=== PATIENT | female | born 2000 | race Caucasian/White ===

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

== ENCOUNTER 2022-03-06 20:56 | Inpatient (IN) ==
[2022-03-06] MEDS ORDERED: NS 1,000 ML IV 1,000 ML IV SCH (22:00)
[2022-03-06 22:13] LABS: BASOPHILS # (AUTO) 0.1 X10^3/uL (0.0-0.1); BASOPHILS % (AUTO) 0.6 % (0.2-1.0); HEMATOCRIT 37.2 % (36.0-47.0); HEMOGLOBIN 12.8 g/dL (12.0-16.0); LYMPHOCYTES # (AUTO) 0.7 X10^3/uL (1.3-2.9); LYMPHOCYTES % (AUTO) 3.4 % (21.0-51.0); MEAN CORPUSCULAR HGB CONC 34.4 g/dL (33.0-35.0); MEAN CORPUSCULAR VOLUME 98.8 fL (80.0-100.0); MEAN PLATELET VOLUME 10.7 fL (7.4-11.0); MONOCYTES # (AUTO) 1.5 x10^3/uL (0.3-0.8); NEUTROPHILS # (AUTO) 18.7 x10^3/uL (2.2-4.8); RED BLOOD COUNT 3.77 X10^6/uL (3.5-5.4); RED CELL DISTRIBUTION WIDTH 12.4 % (11.6-16.5)
[2022-03-06 22:17] LABS: ABG BASE EXCESS 7.1 mmol/L (-2.0-2.0)
[2022-03-06 22:18] LABS: ABG ALLEN TEST POS; ABG HCO3 30.1 mmol/L (22-26)
--- NOTE | 2022-03-06 22:23 | RAD ---
HISTORYpneumonia, feverSTUDYCHEST, PA/LAT ADULTCOMPARISONNovember 2019.TECHNIQUEFrontal and lateral views of the chest were obtained.FINDINGSThere may be a ventriculoperitoneal catheter coursing along the right neck and medial aspect of the right chest. There are multiple EKG leads and wires seen overlying the patient. The heart is normal in size. There is a focal left lower lobe alveolar infiltrate. There is no effusion. There is no pneumothorax. The osseous structures are intact.IMPRESSIONFocal left lower lobe alveolar infiltrate.Electronically signed by: Yelitza Herzog (Mar 06, 2022 22:21:25)
[2022-03-06 22:25] LABS: ALANINE AMINOTRANSFERASE 34 Units/L (12-78); ALBUMIN 3.5 g/dL (3.4-5.0); ALKALINE PHOSPHATASE 67 Units/L (46-116); ASPARTATE AMINO TRANSFERASE 28 Units/L (15-37); BLOOD UREA NITROGEN 39 mg/dL (7-18); CALCIUM 9.2 mg/dL (8.5-10.1); CARBON DIOXIDE 29.3 mmol/L (21-32); CHLORIDE 110 mmol/L (98-107); COR NA(FOR HYPERGLY) 149 mmol/L (136-145); CREATININE 0.87 mg/dL (0.55-1.02); SODIUM 149 mmol/L (136-145); TOTAL PROTEIN 8.7 g/dL (6.4-8.2); eGFR NON BLACK RACES > 60 (>60)
[2022-03-06] MEDS ORDERED: ZOSYN VIAL 4.5 GRAMS IV ONE (23:49)
[2022-03-06] MEDS: LEVAQUIN PREMIX IV 750 MG 750 MG/150 ML BAG IV SCH (23:50)
[2022-03-06] MEDS ORDERED: NS 100 ML IV 100 ML ONE (23:50)
[2022-03-06] MEDS: SOLU-Medrol 40 MG VIAL IVP SCH (23:50)
[2022-03-07] MEDS: ZOSYN VIAL 4.5 GRAMS 4.5 G in NS 100 ML IV + SPIKE MINIBAG* 100 ML IV SCH ×2 (02:18→07:00)
[2022-03-07 05:41] VITALS: BMI 12.7
[2022-03-07 05:45] LABS: ALANINE AMINOTRANSFERASE 31 Units/L (12-78); ALBUMIN 3.3 g/dL (3.4-5.0); ALKALINE PHOSPHATASE 64 Units/L (46-116); ASPARTATE AMINO TRANSFERASE 31 Units/L (15-37); BLOOD UREA NITROGEN 35 mg/dL (7-18); CARBON DIOXIDE 29.2 mmol/L (21-32); CHLORIDE 110 mmol/L (98-107); COR CA(FOR HYPOALB) 9.6 mg/dL (8.5-10.1); COR NA(FOR HYPERGLY) 150 mmol/L (136-145); CREATININE 0.79 mg/dL (0.55-1.02); SODIUM 149 mmol/L (136-145); TOTAL PROTEIN 8.7 g/dL (6.4-8.2); eGFR NON BLACK RACES > 60 (>60)
[2022-03-07 06:08] LABS: HEMOGLOBIN 12.4 g/dL (12.0-16.0); MEAN PLATELET VOLUME 11.6 fL (7.4-11.0)
[2022-03-07 06:12] LABS: BASOPHILS % (AUTO) 0.2 % (0.2-1.0); LYMPHOCYTES # (AUTO) 0.4 X10^3/uL (1.3-2.9); MEAN CORPUSCULAR HEMOGLOBIN 33.4 pg (27.0-34.0); MEAN CORPUSCULAR HGB CONC 33.6 g/dL (33.0-35.0); MEAN CORPUSCULAR VOLUME 99.4 fL (80.0-100.0); MONOCYTES # (AUTO) 0.6 x10^3/uL (0.3-0.8); MONOCYTES % (AUTO) 2.9 % (0.0-13.0); NEUTROPHILS # (AUTO) 19.9 x10^3/uL (2.2-4.8); NEUTROPHILS % (AUTO) 94.9 % (42.0-75.0); RED BLOOD COUNT 3.72 X10^6/uL (3.5-5.4); RED CELL DISTRIBUTION WIDTH 12.8 % (11.6-16.5)
--- NOTE | 2022-03-07 06:42 | RAD ---
HISTORYPneumoniaSTUDYAP [id number]/16/2022FINDINGSHeart size remains normal. There is interval improvement in the left lower lobe infiltrate. The right lung remains clear. There is no evidence for additional consolidation, edema or pleural fluid.IMPRESSIONSignificant interval improvement in the left lower lobe. No new abnormality demonstrated.Electronically signed by: ANNE KING (Mar 07, 2022 06:41:03)
[2022-03-07] MEDS ORDERED: ZOSYN VIAL 4.5 GRAMS IV ONE (06:46)
[2022-03-07] MEDS ORDERED: NS 100 ML IV 100 ML ONE (06:47)
[2022-03-07] MEDS: SOLU-Medrol 40 MG VIAL IVP SCH ×3 (07:00→21:15)
[2022-03-07 07:24] LABS: PLATELET MORPHOLOGY COMMENT NORMAL (NORMAL)
[2022-03-07 07:26] LABS: BAND NEUTROPHILS % 2 % (0-10)
[2022-03-07] MEDS: PULMICORT NEB TX 0.5 MG NEB SCH ×2 (08:25→20:30)
[2022-03-07] MEDS: XOPENEX 1.25 MG/3 ML NEBULE NEB SCH ×3 (08:25→20:30)
[2022-03-07] MEDS: TAMIFLU PO SCH ×2 (09:47→21:15)
[2022-03-07] MEDS ORDERED: NS 1/2 1,000 ML IV 1,000 ML IV ONE (11:59)
[2022-03-07] MEDS: NS 1/2 1,000 ML IV 1,000 ML IV SCH (12:12)
--- NOTE | 2022-03-07 13:34 | DR.H&P ---
H&P - History & Physical for Day of: H&P Date: 03/06/22 - Chief Complaint Chief Complaint: FEVER, CCC - History of Present Illness History of Present Illness: PT IS 21WF, DIRECT ADMIT PER DR MCHUGH WITH FEVER, CCC. CXR REVEALED PNEUMONIA. PT HAS BEEN TREATED ON OP BASIS FOR ONE WEEK WITH PO ANTIBIOTICS AND RESP THERAPY WITHOUT IMPROVEMENT. PT WAS NOTED TO HAVE TEMP 1O3 AT HOME. PT HAS PMH OFPARKINSONS DISEASE AND MUSCULAR DYSTROPHY, ONSET FOUR YEARS AGO. SHE IS BED/WHEELCHAIR RIDDEN. FOOT DROP IS PRESENT. SHE HAS HAD A TONSILLECTOMY, G-TUBE PLACEMENT, AND BRAIN STIMULATOR INSERTION. PT ADMITTED FOR TREATMENT OF ACUTE ILLNESS. - Past Medical History Additional Medical History: PARKINSONS DISEASE, MUSCULAR DYSTROPHY - Past Surgical History Surgical History: Tonsillectomy Additional Surgical History: G-TUBE PLACEMENT, BRAIN STIMULATOR - Family History Family Medical History: Diabetes Mellitus, Coronary Artery Disease, Hypertension - Social History Does patient currently use any type of tobacco product: No Have you used tobacco products in the last 12 months: No Type of Tobacco Use: None Alcohol Use: None Drug Use: None Prescription drug monitoring program results: PDMP reviewed and no concerns identified - Medications Home Medications: No Known Drug Allergies Allergy (Verified 09/04/19 10:48) CONTINUE taking the following medications labmoyqggbmimvx-rqpvurvplnlilke-BM 2 mg-30 mg-10 mg/5 mL oral syrup 10 ml PO QID 03/07/22 [History] budesonide 0.25 mg/2 mL suspension for nebulization ml 03/07/22 [History] diazepam 5 mg tablet 1 tab PO TID PRN 03/07/22 [History] - Review of Systems Constitutional: Fever, Chills, Sweats ENT: No Symptoms Reported Respiratory: Cough, Sputum, Wheezing Cardiovascular: No Symptoms Reported Gastrointestinal: Other (INCREASED RESIDUAL WITH PEG TUBE ASPIRATION FOR ~4-5 DAYS) Genitourinary: Incontinence Musculoskeletal: No Symptoms Reported Skin: No Symptoms Reported Neurological: No Symptoms Reported - Physical Exam Vital Signs: Temperature 98.6 F Pulse Rate 92 Respiratory Rate 17 Blood Pressure [Right Arm] 98/55 Blood Pressure [Right Calf] 108/59 Blood Pressure [Right Arm] 115/54 Blood Pressure 100/67 O2 Sat by Pulse Oximetry 100 Oriented: Unable to test Eyes: Normal Ear: Normal Nose: Normal Throat: Dry Respiratory: Rhonchi Throughout, RLL Diminished, LLL Diminished Cardiovascular: Normal. negative: Edema : Normal Auscultation: Bowel Sounds: Normal Palpation: Normal Tenderness: Normal Skin: Decreased [place]urg[place] Musculoskeletal: Motor Deficit Mood Description: Calm Speech Pattern: Aphasic - Assessment/Plan (1) Pneumonia Status: Acute Plan: IV ATBX WITH LEVAQUIN AND ZOSYN. GENTLE IF HYDRATION, VERIFY AND RESUME HOME MEDICATION. CXR AND RESP PANEL OBTAINED ON ADMISSION. STRICT I&OS, RESP THERAPY, SUPPLEMENTAL O2. REPEAT AM CXR (2) Influenza A Status: Acute (3) GERD (gastroesophageal reflux disease) Status: Chronic (4) Parkinson disease Status: Chronic (5) Macular dystrophy Status: Chronic - Allergies Allergies/Adverse Reactions: Allergies Allergy/AdvReac Type Severity Reaction Status Date / Time No Known Drug Allergies Allergy Verified 09/04/19 10:48
--- NOTE | 2022-03-07 13:43 | PCM.PROG ---
Progress Note - Progress Note for Day of Date of Exam: 03/07/22 - Subjective Subjective: PT IS 21WF WITH PMH OF BED CONFINEMENT DUE TO PARKSINSONS, CURRENTLY FLU A+ WITH PNEUMONIA. PT IS ON LEVAQUIN, SOLU MEDROL, ZOSYN AND TAMIFLU. PT IS ON SUPPLEMENTAL O2 AND DUO NEBS SINCE ADMISSION. CXR SHOWS INTERVAL IMPROVEMENT, CONTINUED WITH PNEUMONIA. PT FAMILY AT BEDSIDE. REVIEWED DIAGNOSTIC TESTS AND LABS. DR MCHUGH ASSESSED PT IN ICU THIS AM. G TUBE FEEDINGS HAVE BEEN ADJUSTED DUE TO INCREASE RESIDUAL VOLUME. DR MCHUGH GAVE ORDERS FOR ENSURE SUPPLEMENTAL. PT WBC 21, HGB 12,4, NA 149, CLORIDE 110. HER IV FLUIDS WERE CHANGED TO 1/2NS AT 75 CC/HR. PLAN TO REPEAT AM LABS AND CXR. BP93/59 O2 SAT 96 ON 2L/NC, TEMP. 98.7 THIS AM - Past Medical Family Social History Past Med/Fam/Surg Hx: No changes since H&P Allergies: Allergies No Known Drug Allergies Allergy (Verified 09/04/19 10:48) - Review of Systems ROS: No change since H&P - Vital Signs and I&O's Vital Signs: Temperature 98.6 F Pulse Rate 85 Respiratory Rate 17 Blood Pressure [Right Arm] 98/55 Blood Pressure [Right Calf] 108/59 Blood Pressure [Right Arm] 115/54 Blood Pressure 92/53 O2 Sat by Pulse Oximetry 100 Intake and Output: Intake & Output 03/05/22 03/06/22 03/07/22 03/08/22 11:59 11:59 11:59 11:59 Intake Total 509 / 509 Balance 509 / 509 - Physical Exam Oriented: Unable to test, Other (EYES OPEN) Eyes: Normal Ear: Normal Nose: Normal Throat: Dry Respiratory: Diminished, Rhonchi Cardiovascular: Normal. negative: Edema : Normal Auscultation: Bowel Sounds: Normal Tenderness: Normal Skin: Decreased Turgur Musculoskeletal: Motor Deficit Mood Description: Calm Speech Pattern: Aphasic - Laboratory and Diagnostics Result Diagrams: 03/07/22 04:20 03/07/22 04:20 Labs: Laboratory WBC 21.0 X10^3/uL (3.6-10.0) H 03/07/22 04:20 RBC 3.72 X10^6/uL (3.5-5.4) 03/07/22 04:20 Hgb 12.4 g/dL (12.0-16.0) 03/07/22 04:20 Hct 37.0 % (36.0-47.0) 03/07/22 04:20 MCV 99.4 fL (80.0-100.0) 03/07/22 04:20 MCH 33.4 pg (27.0-34.0) 03/07/22 04:20 MCHC 33.6 g/dL (33.0-35.0) 03/07/22 04:20 RDW 12.8 % (11.6-16.5) 03/07/22 04:20 Plt Count 293 X10^3/uL (150.0-450.0) 03/07/22 04:20 Plt Count Comment Adequate (ADEQUATE) 03/07/22 04:20 MPV 11.6 fL (7.4-11.0) H 03/07/22 04:20 Neut % (Auto) 94.9 % (42.0-75.0) H 03/07/22 04:20 Lymph % (Auto) 2.0 % (21.0-51.0) L 03/07/22 04:20 [place] % (Auto) 2.9 % (0.0-13.0) 03/07/22 04:20 Eos % (Auto) 0.0 % (0.9-2.9) L 03/07/22 04:20 Baso % (Auto) 0.2 % (0.2-1.0) 03/07/22 04:20 Neut # (Auto) 19.9 x10^3/uL (2.2-4.8) H 03/07/22 04:20 Lymph # (Auto) 0.4 X10^3/uL (1.3-2.9) L 03/07/22 04:20 [place] # (Auto) 0.6 x10^3/uL (0.3-0.8) 03/07/22 04:20 Eos # (Auto) 0.0 x10^3/uL (0.0-0.2) 03/07/22 04:20 Baso # (Auto) 0.0 X10^3/uL (0.0-0.1) 03/07/22 04:20 Absolute Nucleated RBC 0.0 /100WBC 03/07/22 04:20 Total Counted 100 03/07/22 04:20 Neutrophils % (Manual) 92 % (39-76) H 03/07/22 04:20 Band Neutrophils % 2 % (0-10) 03/07/22 04:20 Lymphocytes % (Manual) 1 % (13-43) L 03/07/22 04:20 Monocytes % (Manual) 5 % (4-9) 03/07/22 04:20 Plt Morphology Comment Normal (NORMAL) 03/07/22 04:20 RBC Morphology Normal (NORMAL) 03/07/22 04:20 Sample Site Lrad 03/06/22 22:15 ABG pH 7.530 (7.35-7.45) H 03/06/22 22:15 ABG pCO2 36.0 mmHg (35.0-45.0) 03/06/22 22:15 ABG pO2 86.0 mmHg (80.0-100.0) 03/06/22 22:15 ABG HCO3 30.1 mmol/L (22-26) H* 03/06/22 22:15 ABG O2 Saturation 98.0 % (90-100) 03/06/22 22:15 ABG Base Excess 7.1 mmol/L (-2.0-2.0) H 03/06/22 22:15 Mohsen Test Pos 03/06/22 22:15 A-a Gradient 69.0 mmHg 03/06/22 22:15 FiO2 28.0 03/06/22 22:15 Blood Gas Comments rene well ms 03/06/22 22:15 Sodium 149 mmol/L (136-145) H 03/07/22 04:20 Corrected Sodium 150 mmol/L (136-145) H 03/07/22 04:20 Potassium 4.6 mmol/L (3.5-5.1) 03/07/22 04:20 Chloride 110 mmol/L (98-107) H 03/07/22 04:20 Carbon Dioxide 29.2 mmol/L (21-32) 03/07/22 04:20 BUN 35 mg/dL (7-18) H 03/07/22 04:20 Creatinine 0.79 mg/dL (0.55-1.02) 03/07/22 04:20 Est GFR (MDRD) Af Amer > 60 (>60) 03/07/22 04:20 Est GFR (MDRD) Non-Af > 60 (>60) 03/07/22 04:20 Glucose 125 mg/dL (65-99) H 03/07/22 04:20 Calcium 9.0 mg/dL (8.5-10.1) 03/07/22 04:20 Corrected Calcium 9.6 mg/dL (8.5-10.1) 03/07/22 04:20 Total Bilirubin 0.60 mg/dL (0.2-1.0) 03/07/22 04:20 AST 31 Units/L (15-37) 03/07/22 04:20 ALT 31 Units/L (12-78) 03/07/22 04:20 Alkaline Phosphatase 64 Units/L (46-116) 03/07/22 04:20 Total Protein 8.7 g/dL (6.4-8.2) H 03/07/22 04:20 Albumin 3.3 g/dL (3.4-5.0) L 03/07/22 04:20 Globulin 5.4 g/dL (2.5-4.5) H 03/07/22 04:20 Albumin/Globulin Ratio 0.6 Ratio (1.1-2.1) L 03/07/22 04:20 SARS-CoV-2 (PCR) Negative (NEGATIVE) 03/06/22 23:10 Influenza Type A (PCR) Positive (NEGATIVE) A 03/06/22 23:10 Influenza Type B (PCR) Negative (NEGATIVE) 03/06/22 23:10 RSV (PCR) Negative (NEGATIVE) 03/06/22 23:10 - Plan (1) Pneumonia Status: Acute Plan: IV ATBX WITH LEVAQUIN AND ZOSYN. GENTLE IF HYDRATION, VERIFY AND RESUME HOME MEDICATION. CXR AND RESP PANEL OBTAINED ON ADMISSION. STRICT I&OS, RESP THERAPY, SUPPLEMENTAL O2. REPEAT AM CXR (2) Hypernatremia Status: Acute Plan: 1/2 NS AT 75, REPEAT AM CMP, RESUME TUBE FEEDINGS, FLUSH WITH H2O PER DR NELSON ORDER (3) Influenza A Status: Acute (4) GERD (gastroesophageal reflux disease) Status: Chronic (5) Parkinson disease Status: Chronic (6) Macular dystrophy Status: Chronic
[2022-03-07] MEDS: ZOSYN VIAL 4.5 GRAMS 4.5 G in NS 100 ML IV 100 ML IV SCH ×2 (13:53→21:16)
[2022-03-07] MEDS: LEVAQUIN PREMIX IV 750 MG 750 MG/150 ML BAG IV SCH (21:16)
[2022-03-08] MEDS ORDERED: NS 1/2 1,000 ML IV 1,000 ML IV ONE ×2 (01:25→18:14)
[2022-03-08] MEDS: NS 1/2 1,000 ML IV 1,000 ML IV SCH ×3 (04:12→18:45)
[2022-03-08 04:30] LABS: BASOPHILS % (AUTO) 0.1 % (0.2-1.0); HEMATOCRIT 31.5 % (36.0-47.0); HEMOGLOBIN 10.6 g/dL (12.0-16.0); LYMPHOCYTES # (AUTO) 0.7 X10^3/uL (1.3-2.9); MEAN CORPUSCULAR HEMOGLOBIN 33.5 pg (27.0-34.0); MEAN CORPUSCULAR HGB CONC 33.8 g/dL (33.0-35.0); MEAN CORPUSCULAR VOLUME 99.2 fL (80.0-100.0); MEAN PLATELET VOLUME 11.1 fL (7.4-11.0); MONOCYTES # (AUTO) 0.6 x10^3/uL (0.3-0.8); MONOCYTES % (AUTO) 5.3 % (0.0-13.0); NEUTROPHILS # (AUTO) 10.3 x10^3/uL (2.2-4.8); NEUTROPHILS % (AUTO) 88.6 % (42.0-75.0); RED BLOOD COUNT 3.17 X10^6/uL (3.5-5.4); RED CELL DISTRIBUTION WIDTH 12.7 % (11.6-16.5)
[2022-03-08 04:38] LABS: ALANINE AMINOTRANSFERASE 20 Units/L (12-78); ALBUMIN 2.9 g/dL (3.4-5.0); ALKALINE PHOSPHATASE 57 Units/L (46-116); ASPARTATE AMINO TRANSFERASE 23 Units/L (15-37); BLOOD UREA NITROGEN 27 mg/dL (7-18); CALCIUM 8.9 mg/dL (8.5-10.1); CARBON DIOXIDE 29.1 mmol/L (21-32); CHLORIDE 110 mmol/L (98-107); COR CA(FOR HYPOALB) 9.8 mg/dL (8.5-10.1); CREATININE 0.63 mg/dL (0.55-1.02); SODIUM 146 mmol/L (136-145); TOTAL PROTEIN 7.7 g/dL (6.4-8.2); eGFR NON BLACK RACES > 60 (>60)
[2022-03-08 04:41] LABS: WHITE BLOOD COUNT 11.6 X10^3/uL (3.6-10.0)
[2022-03-08] MEDS: SOLU-Medrol 40 MG VIAL IVP SCH ×3 (05:29→21:12)
[2022-03-08] MEDS: ZOSYN VIAL 4.5 GRAMS 4.5 G in NS 100 ML IV 100 ML IV SCH ×3 (05:29→21:12)
[2022-03-08 06:17] LABS: BILIRUBIN,URINE NEGATIVE (NEGATIVE); BLOOD/HEMOGLOBIN,URINE 1+ (NEGATIVE); GLUCOSE, URINE NEGATIVE (NEGATIVE); KETONES,URINE 1+ (NEGATIVE); LEUKOCYTE ESTERASE ,URINE 1+ (NEGATIVE); NITRITES,URINE NEGATIVE (NEGATIVE); PROTEIN,URINE 2+ (NEGATIVE); UROBILINOGEN,URINE NORMAL (NORMAL)
[2022-03-08 06:28] LABS: APPEARANCE,URINE SLIGHTLY HAZY (CLEAR); BACTERIA,URINE TRACE /HPF (NEGATIVE); COLOR,URINE DARK YELLOW (YELLOW); RENAL EPITHELIAL CELLS,URINE RARE /HPF (NEGATIVE); SQUAMOUS EPITHELIAL CELL,UR FEW /HPF (NEGATIVE)
--- NOTE | 2022-03-08 07:26 | RAD ---
HISTORYPNEUMONIA; FEVER; SOBSTUDYCHEST, 1 [id number]/17/2022.TECHNIQUEAP view of the chestFINDINGSThe heart is normal in size. There is left base patchy opacity fat remains. No pleural effusion or pneumothorax. External wires limit evaluation. Patient is rotated.IMPRESSIONMild left base patchy opacity consistent with pneumonia.Electronically signed by: Jimy Perdomo (Mar 08, 2022 07:24:53)
[2022-03-08] MEDS: PULMICORT NEB TX 0.5 MG NEB SCH ×2 (08:00→21:02)
[2022-03-08] MEDS: XOPENEX 1.25 MG/3 ML NEBULE NEB SCH ×4 (08:00→21:02)
[2022-03-08] MEDS: TAMIFLU PO SCH ×2 (08:25→20:36)
[2022-03-08] MEDS ORDERED: NORCO 7.5/325 MG TAB PO PRN (10:06)
[2022-03-08] MEDS ORDERED: LIORESAL PO PRN (10:06)
[2022-03-08] MEDS ORDERED: SOMA TAB 350 MG PO PRN (10:06)
[2022-03-08] MEDS ORDERED: KLONOPIN TAB 1 MG PO PRN (10:06)
[2022-03-08] MEDS ORDERED: LOVENOX INJ 40 MG SYR SC SCH (11:00)
[2022-03-08] MEDS: NORETHINDRONE E ESTRADIOL IRON PO SCH (11:03)
[2022-03-08] MEDS: LEXAPRO PO SCH (11:03)
[2022-03-08] MEDS: PSEUDOEPHEDRINE PO SCH ×3 (12:10→21:14)
[2022-03-08] MEDS: DEXTROMETHORPHAN PO SCH ×3 (12:10→21:14)
[2022-03-08] MEDS: BROMPHENIRAMINE PO SCH ×3 (12:10→21:14)
[2022-03-08 19:01] LABS: BILIRUBIN,URINE NEGATIVE (NEGATIVE); BLOOD/HEMOGLOBIN,URINE NEGATIVE (NEGATIVE); GLUCOSE, URINE NEGATIVE (NEGATIVE); KETONES,URINE NEGATIVE (NEGATIVE); LEUKOCYTE ESTERASE ,URINE NEGATIVE (NEGATIVE); NITRITES,URINE NEGATIVE (NEGATIVE); PROTEIN,URINE 2+ (NEGATIVE); UROBILINOGEN,URINE NORMAL (NORMAL)
[2022-03-08 19:04] LABS: APPEARANCE,URINE CLEAR (CLEAR); COLOR,URINE YELLOW (YELLOW)
[2022-03-08 19:11] LABS: BACTERIA,URINE TRACE /HPF (NEGATIVE); RBC,URINE 0-2 /HPF (0-3); SQUAMOUS EPITHELIAL CELL,UR MODERATE /HPF (NEGATIVE)
[2022-03-08] MEDS: LEVAQUIN PREMIX IV 750 MG 750 MG/150 ML BAG IV SCH (21:12)
[2022-03-09 04:20] LABS: BASOPHILS % (AUTO) 0.1 % (0.2-1.0); HEMATOCRIT 31.6 % (36.0-47.0); LYMPHOCYTES # (AUTO) 0.5 X10^3/uL (1.3-2.9); MEAN CORPUSCULAR HEMOGLOBIN 34.3 pg (27.0-34.0); MEAN CORPUSCULAR HGB CONC 34.7 g/dL (33.0-35.0); MEAN CORPUSCULAR VOLUME 98.6 fL (80.0-100.0); MEAN PLATELET VOLUME 11.2 fL (7.4-11.0); MONOCYTES # (AUTO) 0.8 x10^3/uL (0.3-0.8); MONOCYTES % (AUTO) 7.7 % (0.0-13.0); NEUTROPHILS # (AUTO) 8.8 x10^3/uL (2.2-4.8); NEUTROPHILS % (AUTO) 87.2 % (42.0-75.0); RED CELL DISTRIBUTION WIDTH 12.2 % (11.6-16.5); WHITE BLOOD COUNT 10.1 X10^3/uL (3.6-10.0)
[2022-03-09 04:32] LABS: ALANINE AMINOTRANSFERASE 22 Units/L (12-78); ALBUMIN 2.7 g/dL (3.4-5.0); ALKALINE PHOSPHATASE 56 Units/L (46-116); ASPARTATE AMINO TRANSFERASE 18 Units/L (15-37); BLOOD UREA NITROGEN 21 mg/dL (7-18); CALCIUM 8.7 mg/dL (8.5-10.1); CARBON DIOXIDE 28.9 mmol/L (21-32); CHLORIDE 108 mmol/L (98-107); COR CA(FOR HYPOALB) 9.7 mg/dL (8.5-10.1); CREATININE 0.47 mg/dL (0.55-1.02); SODIUM 142 mmol/L (136-145); TOTAL PROTEIN 7.1 g/dL (6.4-8.2); eGFR NON BLACK RACES > 60 (>60)
[2022-03-09] MEDS: ZOSYN VIAL 4.5 GRAMS 4.5 G in NS 100 ML IV 100 ML IV SCH (05:01)
[2022-03-09] MEDS: SOLU-Medrol 40 MG VIAL IVP SCH (05:01)
[2022-03-09] MEDS: NS 1/2 1,000 ML IV 1,000 ML IV SCH (05:15)
--- NOTE | 2022-03-09 06:01 | RAD ---
HISTORYShortness of breathSTUDYChest AP [id number]/18/2022FINDINGSPati ent is rotated to the left. Heart size is normal. Christina are normal. Lung omalley are free with the exception of minimal subsegmental atelectasis in the left lower lobe. No acute alveolar infiltrates or areas of consolidation are identified. No pneumothorax or pleural effusion is identified. Bony thorax is unremarkable.IMPRESSIONNo acute infiltratesMinimal subsegmental atelectasis left lower lobeElectronically signed by: SOHAIL FOUNTAIN (Mar 09, 2022 06:00:24)
[2022-03-09] MEDS: XOPENEX 1.25 MG/3 ML NEBULE NEB SCH (08:52)
[2022-03-09] MEDS: PULMICORT NEB TX 0.5 MG NEB SCH (08:53)
[2022-03-09] MEDS: BROMPHENIRAMINE PO SCH (09:15)
[2022-03-09] MEDS: PSEUDOEPHEDRINE PO SCH (09:15)
[2022-03-09] MEDS: DEXTROMETHORPHAN PO SCH (09:15)
[2022-03-09] MEDS: NORETHINDRONE E ESTRADIOL IRON PO SCH (09:16)
[2022-03-09] MEDS: LEXAPRO PO SCH (09:16)
[2022-03-09] MEDS: TAMIFLU PO SCH (09:39)
[2022-03-09 10:07] VITALS: BP 96/54
--- NOTE | 2022-03-09 10:18 | PCM.PROG ---
Progress Note - Progress Note for Day of Date of Exam: 03/08/22 - Subjective Subjective: IS CURRENTLY INPATIENT STATUS FOR TREATMENT OF PNEUMONIA AND INFLUENZA. TODAY, SHE IS LYING IN BED WITH EYES CLOSED ON MORNING ROUNDS. SHE AWAKENS TO VERBAL STIMULI. SHE CONTINUES TO HAVE A NON-PRODUCTIVE COUGH AND CONGESTION. SHE DOES HAVE POOR COUGH REFLEX AND HAS DIFFICULTY CLEARING SECRETIONS. ON EXAMINATION TODAY, HEART IS REGULAR IN RATE AND RHYTHM. BILATERAL LUNGS ARE NOTED WITH RHONCHI THROUGHOUT. ABDOMEN IS ROUND, SOFT, AND NON-TENDER WITH NORMAL BOWEL SOUNDS NOTED IN ALL QUADRANTS. NO UPPER OR LOWER EXTREMITY EDEMA NOTED. HER VITALS THIS MORNING ARE: 97.8-91-19-100%-97/60. LABS WERE OBTAINED. ABNORMAL LAB VALUES INCLUDE THE FOLLOWING: WBC 11.6, RBC 3.17, HGB 10.6, HCT 31.5, SODIUM 146, POTASSIUM 4.5, CHLORIDE 110, BUN 27, CREATININE 0.63, GLUCOSE 108, CRP 89.00, TOTAL PROTEIN 7.7, ALBUMIN 2.9. BLOOD CULTURES ARE PENDING. A CHEST XRAY WAS OBTAINED THIS MORNING AND REVEALED: Mild left base patchy opacity consistent with pneumonia. SHE IS CURRENTLY RECEIVING 1/2NS AT 80 ML/HR, ZOSYN 4.5G IV TID, LEVAQUIN 750MG IV DAILY, SOLU-MEDROL 40MG IV Q8H, TAMIFLU 75MG PO BID, XOPENEX NEB TX QID, PULMICORT NEBS BID, AND HER HOME MEDICATIONS WERE RESUMED. OTHERWISE, WE PLAN TO FOLLOW-UP WITH AM LABS AND CHEST XRAY AND CONTINUE TO MONITOR. TIME SPENT ON CLINICAL ASSESSMENT, REVIWING LABS AND IMAGING, DECISION MAKING, AND DOCUMENTATION GREATER THAN 45 MINUTES. - Past Medical Family Social History Past Med/Fam/Surg Hx: No changes since H&P Allergies: Allergies No Known Drug Allergies Allergy (Verified 09/04/19 10:48) - Review of Systems ROS: No change since H&P - Vital Signs and I&O's Vital Signs: Temperature 99.0 F Pulse Rate 69 Respiratory Rate 15 Blood Pressure [Right Arm] 98/55 Blood Pressure [Right Calf] 108/59 Blood Pressure [Right Arm] 115/54 Blood Pressure 96/54 O2 Sat by Pulse Oximetry 100 Intake and Output: Intake & Output 03/06/22 03/07/22 03/08/22 03/09/22 11:59 11:59 11:59 11:59 Intake Total 509 / 509 2114 / 2114 2720 / 2720 Output Total 600 / 600 500 / 500 Balance 509 / 509 1514 / 1514 2220 / 2220 - Physical Exam Oriented: Other (EYES OPEN) Eyes: Normal Ear: Normal Nose: Normal Throat: Dry Respiratory: Diminished, Rhonchi Cardiovascular: Normal. negative: Edema : Normal Auscultation: Bowel Sounds: Normal Palpation: Normal Tenderness: Normal Skin: Decreased Turgur Musculoskeletal: Motor Deficit Mood Description: Calm Speech Pattern: Aphasic - Laboratory and Diagnostics Result Diagrams: 03/09/22 03:57 03/09/22 03:57 Labs: 03/06/22 22:05 Blood Blood Culture - Preliminary 03/06/22 21:58 Blood Blood Culture - Preliminary Laboratory WBC 10.1 X10^3/uL (3.6-10.0) H 03/09/22 03:57 RBC 3.20 X10^6/uL (3.5-5.4) L 03/09/22 03:57 Hgb 11.0 g/dL (12.0-16.0) L 03/09/22 03:57 Hct 31.6 % (36.0-47.0) L 03/09/22 03:57 MCV 98.6 fL (80.0-100.0) 03/09/22 03:57 MCH 34.3 pg (27.0-34.0) H 03/09/22 03:57 MCHC 34.7 g/dL (33.0-35.0) 03/09/22 03:57 RDW 12.2 % (11.6-16.5) 03/09/22 03:57 Plt Count 243 X10^3/uL (150.0-450.0) 03/09/22 03:57 Plt Count Comment Adequate (ADEQUATE) 03/07/22 04:20 MPV 11.2 fL (7.4-11.0) H 03/09/22 03:57 Neut % (Auto) 87.2 % (42.0-75.0) H 03/09/22 03:57 Lymph % (Auto) 5.0 % (21.0-51.0) L 03/09/22 03:57 [place] % (Auto) 7.7 % (0.0-13.0) 03/09/22 03:57 Eos % (Auto) 0.0 % (0.9-2.9) L 03/09/22 03:57 Baso % (Auto) 0.1 % (0.2-1.0) L 03/09/22 03:57 Neut # (Auto) 8.8 x10^3/uL (2.2-4.8) H 03/09/22 03:57 Lymph # (Auto) 0.5 X10^3/uL (1.3-2.9) L 03/09/22 03:57 [place] # (Auto) 0.8 x10^3/uL (0.3-0.8) 03/09/22 03:57 Eos # (Auto) 0.0 x10^3/uL (0.0-0.2) 03/09/22 03:57 Baso # (Auto) 0.0 X10^3/uL (0.0-0.1) 03/09/22 03:57 Absolute Nucleated RBC 0.0 /100WBC 03/09/22 03:57 Total Counted 100 03/07/22 04:20 Neutrophils % (Manual) 92 % (39-76) H 03/07/22 04:20 Band Neutrophils % 2 % (0-10) 03/07/22 04:20 Lymphocytes % (Manual) 1 % (13-43) L 03/07/22 04:20 Monocytes % (Manual) 5 % (4-9) 03/07/22 04:20 Plt Morphology Comment Normal (NORMAL) 03/07/22 04:20 RBC Morphology Normal (NORMAL) 03/07/22 04:20 Sample Site Lrad 03/06/22 22:15 ABG pH 7.530 (7.35-7.45) H 03/06/22 22:15 ABG pCO2 36.0 mmHg (35.0-45.0) 03/06/22 22:15 ABG pO2 86.0 mmHg (80.0-100.0) 03/06/22 22:15 ABG HCO3 30.1 mmol/L (22-26) H* 03/06/22 22:15 ABG O2 Saturation 98.0 % (90-100) 03/06/22 22:15 ABG Base Excess 7.1 mmol/L (-2.0-2.0) H 03/06/22 22:15 Mohsen Test Pos 03/06/22 22:15 A-a Gradient 69.0 mmHg 03/06/22 22:15 FiO2 28.0 03/06/22 22:15 Blood Gas Comments rene well ms 03/06/22 22:15 Sodium 142 mmol/L (136-145) 03/09/22 03:57 Corrected Sodium TNP 03/09/22 03:57 Potassium 4.4 mmol/L (3.5-5.1) 03/09/22 03:57 Chloride 108 mmol/L (98-107) H 03/09/22 03:57 Carbon Dioxide 28.9 mmol/L (21-32) 03/09/22 03:57 BUN 21 mg/dL (7-18) H 03/09/22 03:57 Creatinine 0.47 mg/dL (0.55-1.02) L 03/09/22 03:57 Est GFR (MDRD) Af Amer > 60 (>60) 03/09/22 03:57 Est GFR (MDRD) Non-Af > 60 (>60) 03/09/22 03:57 Glucose 104 mg/dL (65-99) H 03/09/22 03:57 Calcium 8.7 mg/dL (8.5-10.1) 03/09/22 03:57 Corrected Calcium 9.7 mg/dL (8.5-10.1) 03/09/22 03:57 Total Bilirubin 0.20 mg/dL (0.2-1.0) 03/09/22 03:57 AST 18 Units/L (15-37) 03/09/22 03:57 ALT 22 Units/L (12-78) 03/09/22 03:57 Alkaline Phosphatase 56 Units/L (46-116) 03/09/22 03:57 C-Reactive Protein 35.70 mg/L (0-3.0) H 03/09/22 03:57 Total Protein 7.1 g/dL (6.4-8.2) 03/09/22 03:57 Albumin 2.7 g/dL (3.4-5.0) L 03/09/22 03:57 Globulin 4.4 g/dL (2.5-4.5) 03/09/22 03:57 Albumin/Globulin Ratio 0.6 Ratio (1.1-2.1) L 03/09/22 03:57 Specimen Type Catherized urine 03/08/22 18:32 Urine Color Yellow (YELLOW) 03/08/22 18:32 Urine Appearance Clear (CLEAR) 03/08/22 18:32 Urine pH 5.0 (5.0 - 8.0) 03/08/22 18:32 Ur Specific [place] 1.025 (1.000-1.030) 03/08/22 18:32 Urine Protein 2+ (NEGATIVE) 03/08/22 18:32 Urine Glucose (UA) Negative (NEGATIVE) 03/08/22 18:32 Urine Ketones Negative (NEGATIVE) 03/08/22 18:32 Urine Blood Negative (NEGATIVE) 03/08/22 18:32 Urine Nitrite Negative (NEGATIVE) 03/08/22 18:32 Urine Bilirubin Negative (NEGATIVE) 03/08/22 18:32 Urine Urobilinogen Normal (NORMAL) 03/08/22 18:32 Ur Leukocyte Esterase Negative (NEGATIVE) 03/08/22 18:32 Urine RBC 0-2 /HPF (0-3) 03/08/22 18:32 Urine WBC 0-2 /HPF (0-5) 03/08/22 18:32 Ur Squamous Epith Cells Moderate /HPF (NEGATIVE) 03/08/22 18:32 Ur Renal Epithelial Cell Rare /HPF (NEGATIVE) 03/08/22 05:55 Amorphous Sediment Trace /HPF (NEGATIVE) 03/08/22 18:32 Urine Bacteria Trace /HPF (NEGATIVE) 03/08/22 18:32 Urine Mucus Moderate /HPF (NEGATIVE) 03/08/22 05:55 Ur Culture Indicated? No/not indicated 03/08/22 18:32 SARS-CoV-2 (PCR) Negative (NEGATIVE) 03/06/22 23:10 Influenza Type A (PCR) Positive (NEGATIVE) A 03/06/22 23:10 Influenza Type B (PCR) Negative (NEGATIVE) 03/06/22 23:10 RSV (PCR) Negative (NEGATIVE) 03/06/22 23:10 - Plan (1) Pneumonia Status: Acute Plan: IV ATBX WITH LEVAQUIN AND ZOSYN. GENTLE IF HYDRATION, VERIFY AND RESUME HOME MEDICATION. STRICT I&OS, RESP THERAPY, SUPPLEMENTAL O2. REPEAT AM CXR (2) Hypernatremia Status: Acute Plan: 1/2 NS AT 75, REPEAT AM CMP, RESUME TUBE FEEDINGS, FLUSH WITH H2O (3) Influenza A Status: Acute Plan: tamiflu 75mg po bid (4) GERD (gastroesophageal reflux disease) Status: Chronic Qualifiers: Esophagitis presence: esophagitis presence not specified Qualified Code(s): K21.9 - Gastro-esophageal reflux disease without esophagitis (5) Macular dystrophy Status: Chronic (6) Parkinson disease Status: Chronic
== END 2022-03-09 11:05 | disposition home or self-care (01) | DRG 194 ==
LOC: ICU 21:35
PROVIDERS: ADMIT Internal Medicine; ATTEND Internal Medicine
DX: R50.9 Fever, unspecified; Z20.822 Contact with and (suspected) exposure to COVID-19; K21.9 Gastro-esophageal reflux disease without esophagitis; G71.00 Muscular dystrophy, unspecified; R79.82 Elevated C-reactive protein (CRP); E87.0 Hyperosmolality and hypernatremia; J18.8 Other pneumonia, unspecified organism; Z93.1 Gastrostomy status; R06.02 Shortness of breath; J10.1 Influenza due to other identified influenza virus with other respiratory manifestations

== ENCOUNTER 2022-06-29 09:08 | Inpatient (IN) ==
[2022-06-29] MEDS ORDERED: NS 1,000 ML IV 1,000 ML ONE (10:02)
[2022-06-29 10:15] LABS: ABG ALLEN TEST POS; ABG BASE EXCESS 5.8 mmol/L (-2.0-2.0); ABG HCO3 30.6 mmol/L (22-26)
[2022-06-29] MEDS ORDERED: NS 1,000 ML IV 1,000 ML IV ONE ×3 (10:23→10:34)
[2022-06-29] MEDS: LEVAQUIN PREMIX IV 500 MG 500 MG/100 ML BAG IV SCH ×2 (10:42→12:02)
[2022-06-29] MEDS ORDERED: NS 1,000 ML IV 1,000 ML IV SCH (11:00)
[2022-06-29 11:01] LABS: BASOPHILS % (AUTO) 0.2 % (0.2-1.0); EOSINOPHILS # (AUTO) 0.2 x10^3/uL (0.0-0.2); EOSINOPHILS % (AUTO) 1.1 % (0.9-2.9); HEMATOCRIT 41.1 % (36.0-47.0); HEMOGLOBIN 14.5 g/dL (12.0-16.0); LYMPHOCYTES # (AUTO) 0.6 X10^3/uL (1.3-2.9); LYMPHOCYTES % (AUTO) 4.1 % (21.0-51.0); MEAN CORPUSCULAR HEMOGLOBIN 34.5 pg (27.0-34.0); MEAN CORPUSCULAR HGB CONC 35.2 g/dL (33.0-35.0); MEAN CORPUSCULAR VOLUME 97.9 fL (80.0-100.0); MEAN PLATELET VOLUME 11.4 fL (7.4-11.0); MONOCYTES # (AUTO) 0.6 x10^3/uL (0.3-0.8); MONOCYTES % (AUTO) 3.8 % (0.0-13.0); NEUTROPHILS # (AUTO) 13.9 x10^3/uL (2.2-4.8); NEUTROPHILS % (AUTO) 90.8 % (42.0-75.0); RED CELL DISTRIBUTION WIDTH 12.7 % (11.6-16.5); WHITE BLOOD COUNT 15.3 X10^3/uL (3.6-10.0)
[2022-06-29 11:06] LABS: ABG BASE EXCESS 2.3 mmol/L (-2.0-2.0); ABG HCO3 27.8 mmol/L (22-26)
[2022-06-29 11:07] LABS: ABG ALLEN TEST POS
[2022-06-29 11:11] LABS: ALBUMIN 3.3 g/dL (3.4-5.0); CALCIUM 9.3 mg/dL (8.5-10.1); CARBON DIOXIDE 28.2 mmol/L (21-32); COR CA(FOR HYPOALB) 9.9 mg/dL (8.5-10.1); CREATININE 3.61 mg/dL (0.55-1.02); TOTAL PROTEIN 7.2 g/dL (6.4-8.2)
[2022-06-29 11:18] LABS: LACTIC ACID 7.1 mmol/L (0.4-2.0)
[2022-06-29 11:41] LABS: BAND NEUTROPHILS % 15 % (0-10); METAMYELOCYTES % 7; MYELOCYTES % 1; PROMYELOCYTES % 1
[2022-06-29 11:42] LABS: PLATELET MORPHOLOGY COMMENT NORMAL (NORMAL)
--- NOTE | 2022-06-29 12:16 | RAD ---
HISTORYHYPOXIA, ASPIRATION PNEUMONIA, SEPSISSTUDYCHEST, 1 [id number]/2022FINDINGSThere is abnormal opacity in the lower 2/3 of the right lung. This could be pneumonia and was not present previously.Left lung clear. No pleural effusion or pneumothorax.Heart size is normal.Bones are unremarkable.EKG leads are noted. Additional lines are present in the right chest, unchanged from prior study.IMPRESSION1. New right lung pneumoniaElectronically signed by: Ricardo Chirinos (Jun 29, 2022 12:15:08)
[2022-06-29 12:42] LABS: BILIRUBIN,URINE NEGATIVE (NEGATIVE); BLOOD/HEMOGLOBIN,URINE 3+ (NEGATIVE); GLUCOSE, URINE NEGATIVE (NEGATIVE); KETONES,URINE NEGATIVE (NEGATIVE); LEUKOCYTE ESTERASE ,URINE 1+ (NEGATIVE); NITRITES,URINE NEGATIVE (NEGATIVE); PROTEIN,URINE 2+ (NEGATIVE); UROBILINOGEN,URINE NORMAL (NORMAL)
[2022-06-29 12:42] LABS: MAGNESIUM 2.6 mg/dL (2.0-2.9)
[2022-06-29 12:49] LABS: APPEARANCE,URINE HAZY (CLEAR); COLOR,URINE YELLOW (YELLOW); SQUAMOUS EPITHELIAL CELL,UR FEW /HPF (NEGATIVE)
[2022-06-29 12:50] LABS: BACTERIA,URINE TRACE /HPF (NEGATIVE); CALCIUM OXALATE CRYSTALS,UR FEW /HPF (NEGATIVE); YEAST,URINE MODERATE /HPF (NEGATIVE)
[2022-06-29] MEDS: DUONEB 0.5 MG/3 MG (3 mL) NEB SCH ×4 (12:51→21:00)
[2022-06-29] MEDS: SOLU-Medrol 40 MG VIAL IVP SCH ×3 (13:01→21:18)
[2022-06-29] MEDS: NS 1,000 ML IV 1,000 ML IV SCH ×4 (13:01→21:17)
[2022-06-29 13:53] LABS: INR 1.82 (0.8-1.3)
[2022-06-29] MEDS: ZOSYN VIAL 3.375 GRAMS 3.375 G in NS 100 ML IV 100 ML IV SCH ×2 (15:55→21:17)
[2022-06-29 18:11] LABS: BASOPHILS % (AUTO) 0.1 % (0.2-1.0); EOSINOPHILS % (AUTO) 0.4 % (0.9-2.9); HEMATOCRIT 35.4 % (36.0-47.0); HEMOGLOBIN 12.7 g/dL (12.0-16.0); LYMPHOCYTES # (AUTO) 0.2 X10^3/uL (1.3-2.9); LYMPHOCYTES % (AUTO) 3.7 % (21.0-51.0); MEAN CORPUSCULAR HEMOGLOBIN 34.7 pg (27.0-34.0); MEAN CORPUSCULAR VOLUME 96.5 fL (80.0-100.0); MONOCYTES # (AUTO) 0.2 x10^3/uL (0.3-0.8); MONOCYTES % (AUTO) 2.8 % (0.0-13.0); NEUTROPHILS # (AUTO) 5.9 x10^3/uL (2.2-4.8); RED BLOOD COUNT 3.67 X10^6/uL (3.5-5.4); RED CELL DISTRIBUTION WIDTH 12.9 % (11.6-16.5); WHITE BLOOD COUNT 6.4 X10^3/uL (3.6-10.0)
[2022-06-29 18:39] LABS: ALBUMIN 2.8 g/dL (3.4-5.0); CALCIUM 8.1 mg/dL (8.5-10.1); COR CA(FOR HYPOALB) 9.1 mg/dL (8.5-10.1); CREATININE 2.72 mg/dL (0.55-1.02)
[2022-06-29 18:54] LABS: BAND NEUTROPHILS % 18 % (0-10); METAMYELOCYTES % 8; MYELOCYTES % 10; PLATELET MORPHOLOGY COMMENT NORMAL (NORMAL); PROMYELOCYTES % 2
[2022-06-29] MEDS ORDERED: NS 250 ML IV 250 ML IV ONE (21:27)
--- NOTE | 2022-06-29 22:45 | RAD ---
HISTORYAbdomen distended Relevant Clinical InformationSTUDYKUBCOMPARISONNone br.br.br distended stomach. There is a percutaneous gastrostomy tube present. There is a stimulator device with electrodes projected over the mid abdomen. There is a moderate amount of fecal material within the colon. No pathological soft tissue mass or calcification can be observed. The bony structures are grossly intact.IMPRESSIONModerate gaseous distention of the stomach.Electronically signed by: Miko Patel (Jun 29, 2022 22:43:19)
[2022-06-30] MEDS ORDERED: NS 250 ML IV 250 ML IV PRN (01:00)
[2022-06-30 05:02] LABS: BASOPHILS % (AUTO) 0.2 % (0.2-1.0); EOSINOPHILS % (AUTO) 0.3 % (0.9-2.9); HEMATOCRIT 31.4 % (36.0-47.0); HEMOGLOBIN 11.1 g/dL (12.0-16.0); LYMPHOCYTES # (AUTO) 0.2 X10^3/uL (1.3-2.9); LYMPHOCYTES % (AUTO) 3.4 % (21.0-51.0); MEAN CORPUSCULAR HEMOGLOBIN 34.3 pg (27.0-34.0); MEAN CORPUSCULAR HGB CONC 35.5 g/dL (33.0-35.0); MEAN CORPUSCULAR VOLUME 96.7 fL (80.0-100.0); MEAN PLATELET VOLUME 11.4 fL (7.4-11.0); MONOCYTES # (AUTO) 0.2 x10^3/uL (0.3-0.8); MONOCYTES % (AUTO) 2.8 % (0.0-13.0); NEUTROPHILS # (AUTO) 6.6 x10^3/uL (2.2-4.8); NEUTROPHILS % (AUTO) 93.3 % (42.0-75.0); RED BLOOD COUNT 3.25 X10^6/uL (3.5-5.4); RED CELL DISTRIBUTION WIDTH 12.9 % (11.6-16.5); WHITE BLOOD COUNT 7.1 X10^3/uL (3.6-10.0)
[2022-06-30] MEDS: SOLU-Medrol 40 MG VIAL IVP SCH ×3 (05:06→21:13)
[2022-06-30] MEDS: NS 1,000 ML IV 1,000 ML IV SCH (05:07)
[2022-06-30 05:22] LABS: ALBUMIN 2.6 g/dL (3.4-5.0); CALCIUM 8.6 mg/dL (8.5-10.1); CARBON DIOXIDE 27.9 mmol/L (21-32); COR CA(FOR HYPOALB) 9.7 mg/dL (8.5-10.1); CREATININE 2.19 mg/dL (0.55-1.02); TOTAL PROTEIN 5.8 g/dL (6.4-8.2)
[2022-06-30 05:36] LABS: BAND NEUTROPHILS % 12 % (0-10); METAMYELOCYTES % 4; MYELOCYTES % 6; PLATELET MORPHOLOGY COMMENT NORMAL (NORMAL)
--- NOTE | 2022-06-30 06:35 | RAD ---
HISTORYASPIRATION PNEUMONIA; SOBSTUDYCHEST, 1 [id number]/08/2022.TECHNIQUEAP view of the chestFINDINGSCardiac and mediastinal contours are within normal limits. Mild improvement in right lung airspace opacity which is less dense than prior. No definite pleural effusion or pneumothorax. Patient is rotated.IMPRESSIONMild improvement in right lung airspace opacity.Electronically signed by: Jimy Perdomo (Jun 30, 2022 06:32:50)
[2022-06-30 07:05] LABS: ABG BASE EXCESS 4.7 mmol/L (-2.0-2.0); ABG HCO3 29.2 mmol/L (22-26)
[2022-06-30] MEDS: DUONEB 0.5 MG/3 MG (3 mL) NEB SCH ×4 (09:10→21:00)
[2022-06-30] MEDS ORDERED: DULCOLAX SUPPOSITORY 10 MG RECTAL ONE ×2 (09:52→21:22)
[2022-06-30] MEDS: LOVENOX INJ 30 MG SYR SC SCH (10:00)
[2022-06-30] MEDS: ZOSYN VIAL 3.375 GRAMS 3.375 G in NS 100 ML IV 100 ML IV SCH ×2 (10:50→21:13)
[2022-06-30] MEDS: D5W 1,000 ML IV 1,000 ML IV SCH ×2 (10:50→18:36)
--- NOTE | 2022-06-30 11:11 | DR.H&P ---
H&P - History & Physical for Day of: H&P Date: 06/29/22 - Chief Complaint Chief Complaint: HYPOXIA, RESPIRATORY DISTRESS, LETHARGIC - History of Present Illness History of Present Illness: IS A 22 YEAR OLD PATIENT OF OURS WHO WAS A DIRECT ADMISSION FOR TREATMENT OF ASPIRATION PNEUMONIA, HYPOXIA, AND SHOCK. PATIENTS MOTHER REPORTED THAT PATIENTS GTUBE FEEDINGS BEGAN TO BACK UP ON 06/27/22. ON TUESDAY, PATIENTS MOTHER BEGAN TO NOTICE THAT PATIENT APPEARED TO BE SHORT OF BREATH AND HAD INCREASED RESPIRATORY EFFORTS. SHE BEGAN MONITORING HER OXYGEN SATURATIONS, WHICH REMAINED ABOVE 90 THROUGHOUT TUESDAY. BEGINNING TUESDAY NIGHT AND INTO TUESDAY MORNING, PATIENTS OXYGEN SATURATIONS BEGAN TO DECLINE AND WAS NOTED TO BE IN THE 70s WHEN SHE NOTIFIED US. SHE WAS UNABLE TO OBTAIN A BLOOD PRESSURE AT HOME. DECISION WAS MADE TO ADMIT PATIENT TO THE HOSPITAL. PATIENT HAS A PMH OF PARKINSONS DISEASE AND MUSCULAR DYSTROPHY, ONSET ABOUT FOUR YEARS AGO. SHE IS BED/WHEELCHAIR RIDDEN. SHE HAS HAD A TONSILLECTOMY, G-TUBE PLACEMENT, AND BRAIN STIMULATOR. ON ARRIVAL TO THE HOSPITAL, VITALS WERE: 99.9-153-28-74%-81/56. SHE WAS PLACED ON THE NON- REBREATHER. SATURATIONS ONLY INCREASED TO 82%. LABS WERE OBTAINED. WBC 15.3, RBC 4.20, HGB 14.5, HCT 41.1, PLT COUNT 250, SODIUM 145, POTASSIUM 5.2, CHLORIDE 99, CARBON DIOXIDE 28.2, BUN 70, CREATININE 3.61, GLUCOSE 121, LACTIC ACID 7.1, CALCIUM 9.3, PHOSPHORUS 7.0, MAGNESIUM 2.6, AST 65, ALT 39, ALK PHOS 65, CREATINE KINASE 1651, TROPONIN 133.8, TOTAL PROTEIN 7.2, ALBUMIN 3.3, AMYLASE 136, LIPASE 112. A JOHNSON CATHETER WAS INSERTED AND URINALYSIS OBTAINED. URINE WBC 3-5, RBC 5-10, LEUKOCYTES 1+, BACTERIA TRACE, BLOOD 3+. COVID, INFLUENZA, AND RSV NEGATIVE. A RESPIRATORY VIRAL PANEL WAS COLLECTED AND SENT OUT. BLOOD CULTURES WERE SET UP. ABG OBTAINED AND REVEALED: PH 7.450, PC02 44, P02 35, HC03 30.6, 02 SATURATION 71, BASE EXCESS 5.8, A-A GRADIENT 623, FI02 100. A CHEST XRAY WAS OBTAINED AND REVEALED: There is abnormal opacity in the lower 2/3 of the right lung. This could be pneumonia and was not present previously. Left lung clear. No pleural effusion or pneumothorax. Heart size is normal. Bones are unremarkable. EKG leads are noted. Additional lines are present in the right chest, unchanged from prior study. EKG REVEALED SINUS TACHYCARDIA. A KUB WAS OBTAINED DUE TO ABDOMINAL DISTENTION. IT REVEALED: distended stomach. There is a percutaneous gastrostomy tube present. There is a stimulator device with electrodes projected over the mid abdomen. There is a moderate amount of fecal material within the colon. No pathological soft tissue mass or calcification can be observed. The bony structures are grossly intact. SHE WAS PLACED ON THE BIPAP. AN ABG WAS REPEATED AN HOUR AFTER USING THE BIPAP. IT REVEALED: PH 7.390, PC02 46, P02 43, HC03 27.8, 02 SAT 78, BASE EXCESS 2.3, A-A GRADIENT 613, FI02 100. SHE WAS GIVEN A TOTAL OF FOUR NORMAL SALINE 1 LITER BOLUSES AND THEN STARTED ON NORMAL SALINE AT 150 ML/HR. SHE WAS ALSO STARTED ON ZOSYN 3.375G IV BID, LEVAQUIN 500MG IV Q48H, LOVENOX 30MG SC DAILY, DUONEBS QID, SOLU-MEDROL 80MG IV Q8H. OTHERWISE, WE PLAN TO FOLLOW-UP WITH AM LABS AND CHEST XRAY AND CONTINUE TO MONITOR. TIME SPENT ON CLINICAL ASSESSMENT, REVIWING LABS AND IMAGING, DECISION MAKING, AND DOCUMENTATION GREATER THAN 75 MINUTES. - Past Medical History Additional Medical History: PARKINSONS DISEASE, MUSCULAR DYSTROPHY - Past Surgical History Surgical History: Tonsillectomy Additional Surgical History: G-TUBE PLACEMENT, BRAIN STIMULATOR - Family History Family Medical History: Diabetes Mellitus, Hypertension - Social History Does patient currently use any type of tobacco product: No Have you used tobacco products in the last 12 months: No Type of Tobacco Use: None Does any household member use tobacco: No Alcohol Use: None Drug Use: None - Medications Home Medications: No Known Drug Allergies Allergy (Verified 09/04/19 10:48) - Review of Systems Constitutional: Fever, Weakness Eyes: No Symptoms Reported ENT: No Symptoms Reported Respiratory: See HPI, Cough, Shortness of Breath Cardiovascular: No Symptoms Reported Gastrointestinal: See HPI, Other (ABDOMINAL DISTENTION ) Genitourinary: No Symptoms Reported Musculoskeletal: No Symptoms Reported Neurological: See HPI - Physical Exam Vital Signs: Temperature 97.7 F Pulse Rate 83 Respiratory Rate 20 Blood Pressure [Right Arm] 98/55 Blood Pressure [Right Calf] 108/59 Blood Pressure [Right Arm] 115/54 Blood Pressure 101/74 O2 Sat by Pulse Oximetry 100 Oriented: Unable to test Eyes: Normal Ear: Normal Nose: Normal Throat: Normal Respiratory: Rhonchi Throughout Cardiovascular: Tachycardia : Normal Auscultation: Bowel Sounds: Normal Palpation: Normal Tenderness: Other (DISTENTION, PEG TUBE PRESENT ) Skin: Decreased Turgur Psychiatric: Other (LETHARGIC ) Mood Description: Flat Affect: Flat Speech Pattern: Aphasic - Assessment/Plan (1) Aspiration pneumonia Qualifiers: Aspiration pneumonia type: unspecified Laterality: right Lung location: lower lobe of lung Qualified Code(s): J69.0 - Pneumonitis due to inhalation of food and vomit Status: Acute Plan: ADMIT, BIPAP, NORMAL SALINE AT 150 ML/HR, ZOSYN 3.375G IV BID, LEVAQUIN 500MG IV Q48H, LOVENOX 30MG SC DAILY, DUONEBS QID, SOLU-MEDROL 80MG IV Q8H. (2) Septic shock Status: Acute (3) Hypoxia Status: Acute (4) Respiratory distress Status: Acute (5) Hypernatremia Status: Acute (6) Parkinson disease Status: Chronic (7) Macular dystrophy Status: Chronic - Allergies Allergies/Adverse Reactions: Allergies Allergy/AdvReac Type Severity Reaction Status Date / Time No Known Drug Allergies Allergy Verified 09/04/19 10:48
[2022-06-30 18:17] LABS: GASTRIC OCCULT BLOOD POSITIVE (NEGATIVE); PH,GASTRIC FLUID 3
[2022-06-30] MEDS ORDERED: DULCOLAX SUPPOSITORY 10 MG ONE (21:43)
[2022-07-01] MEDS: D5W 1,000 ML IV 1,000 ML IV SCH ×2 (00:36→08:24)
[2022-07-01 04:57] LABS: BASOPHILS % (AUTO) 0.1 % (0.2-1.0); HEMATOCRIT 24.7 % (36.0-47.0); LYMPHOCYTES # (AUTO) 0.2 X10^3/uL (1.3-2.9); LYMPHOCYTES % (AUTO) 4.2 % (21.0-51.0); MEAN CORPUSCULAR HEMOGLOBIN 34.2 pg (27.0-34.0); MEAN CORPUSCULAR HGB CONC 35.5 g/dL (33.0-35.0); MEAN CORPUSCULAR VOLUME 96.5 fL (80.0-100.0); MEAN PLATELET VOLUME 11.1 fL (7.4-11.0); MONOCYTES # (AUTO) 0.3 x10^3/uL (0.3-0.8); MONOCYTES % (AUTO) 4.6 % (0.0-13.0); NEUTROPHILS # (AUTO) 5.1 x10^3/uL (2.2-4.8); NEUTROPHILS % (AUTO) 91.1 % (42.0-75.0); RED BLOOD COUNT 2.56 X10^6/uL (3.5-5.4); RED CELL DISTRIBUTION WIDTH 12.7 % (11.6-16.5); WHITE BLOOD COUNT 5.6 X10^3/uL (3.6-10.0)
[2022-07-01 05:11] LABS: ALANINE AMINOTRANSFERASE 61 Units/L (12-78); ALBUMIN 2.4 g/dL (3.4-5.0); ALKALINE PHOSPHATASE 40 Units/L (46-116); ASPARTATE AMINO TRANSFERASE 109 Units/L (15-37); BLOOD UREA NITROGEN 33 mg/dL (7-18); CALCIUM 8.4 mg/dL (8.5-10.1); CARBON DIOXIDE 31.9 mmol/L (21-32); CHLORIDE 105 mmol/L (98-107); COR CA(FOR HYPOALB) 9.7 mg/dL (8.5-10.1); COR NA(FOR HYPERGLY) 144 mmol/L (136-145); CREATININE 0.76 mg/dL (0.55-1.02); SODIUM 143 mmol/L (136-145); TOTAL PROTEIN 5.4 g/dL (6.4-8.2); eGFR NON BLACK RACES > 60 (>60)
[2022-07-01] MEDS: SOLU-Medrol 40 MG VIAL IVP SCH ×3 (05:20→21:05)
[2022-07-01 05:38] LABS: BAND NEUTROPHILS % 12 % (0-10); HEMOGLOBIN 8.7 g/dL (12.0-16.0)
[2022-07-01 05:39] LABS: HYPOCHROMASIA SLIGHT; METAMYELOCYTES % 1; MYELOCYTES % 2; PLATELET MORPHOLOGY COMMENT NORMAL (NORMAL)
--- NOTE | 2022-07-01 07:01 | RAD ---
HISTORYASPIRATION PNEUMONIA; SOBSTUDYCHEST, 1 [id number]/09/2022.TECHNIQUEAP view of the chestFINDINGSCardiac and mediastinal contours are within normal limits. Similar appearance of right lung airspace opacity. No definite pleural effusion or pneumothorax. External wires noted. Patient is rotated.IMPRESSIONSimilar appearance of right lung airspace opacity that may be due to aspiration pneumonia.Electronically signed by: Jimy Perdomo (Jul 01, 2022 07:00:21)
[2022-07-01] MEDS: LOVENOX INJ 30 MG SYR SC SCH (08:30)
[2022-07-01] MEDS ORDERED: LEVAQUIN PREMIX IV 500 MG 500 MG/100 ML BAG IV SCH (09:00)
[2022-07-01] MEDS: ZOSYN VIAL 3.375 GRAMS 3.375 G in NS 100 ML IV 100 ML IV SCH ×3 (09:30→21:05)
[2022-07-01] MEDS ORDERED: NovoLIN R (or HumuLIN R) SUBCUT PRN (10:11)
[2022-07-01] MEDS: DUONEB 0.5 MG/3 MG (3 mL) NEB SCH ×4 (10:20→21:51)
[2022-07-01] MEDS: [UNRECOGNIZED DRUG - REMARK] IV SCH ×8 (11:01→19:34)
--- NOTE | 2022-07-01 17:56 | PCM.PROG ---
Progress Note - Progress Note for Day of Date of Exam: 06/30/22 - Subjective Subjective: IS CURRENTLY INPATIENT STATUS FOR TREATMENT OF ASPIRATION PNEUMONIA, SEPTIC SHOCK, DEHYDRATION, HYPOXIA, AND HYPERNATREMIA. SHE HAS A HX OF PARKINSONS, MUSCULAR DYSTROPHY, AND IS BED/WHEELCHAIR RIDDEN. HER PARENTS ARE AT BEDSIDE. THEY REPORT THAT SHE HASNT HAD A BOWEL MOVEMENT IN SEVERAL DAYS AND BELIEVE THAT SHE HAS BEEN STRAINING, BUT HAS BEEN UNABLE TO PRODUCE A BM. TODAY, SHE IS LYING IN BED WITH EYES CLOSED ON MORNING ROUNDS. SHE DOES NOT AWAKEN TO VERBAL STIMULI, BUT MOANS WHILE WE ARE EXAMINING HER. SHE IS CURRENTLY UTILIZING OXYGEN VIA NASAL CANNULA AT 3 LPM. SHE USED THE BIPAP THROUGHOUT THE NIGHT. UPON EXAMINATION TODAY, HEART IS REGULAR IN RATE AND RHYTHM. BILATERAL LUNGS ARE NOTED WITH RHONCHI THROUGHOUT. ABDOMEN IS ROUND, SOFT, AND NON-TENDER WITH NORMAL BOWEL SOUNDS NOTED IN ALL QUADRANTS. G-TUBE IS NOTED. NO UPPER OR LOWER EXTREMITY EDEMA NOTED. HER VITALS THIS MORNING ARE: 97.4-79-15-99%-102/72. LABS WERE OBTAINED. ABNORMAL LAB VALUES INCLUDE THE FOLLOWING: WBC 7.1, RBC 3.25, HGB 11.1, HCT 31.4, SODIUM 150, POTASSIUM 3.9, CHLORIDE 109, BUN 65, CREATININE 2.19, GLUCOSE 115, CALCIUM 8.6, AST 91, ALT 42, ALK PHOS 48, TROPONIN 70.8, TOTAL PROTEIN 5.8, ALBUMIN 2.6. BLOOD CULTURES ARE PENDING. A CHEST XRAY WAS OBTAINED THIS MORNING AND REVEALED: Mild improvement in right lung airspace opacity. A KUB WAS OBTAINED YESTERDAY AND REVEALED A MODERATE AMOUNT OF FECAL MATERIAL IN THE COLON. SHE IS CURRENTLY RECEIVING NORMAL SALINE AT 150 ML/HR, ZOSYN 3.375G IV BID, LEVAQUIN 500MG IV Q48H, LOVENOX 30MG SC DAILY, DUONEBS QID, SOLU-MEDROL 80MG IV Q8H. WE WILL DISCONTINUE THE NORMAL SALINE AND ADD D5W AT 125 ML/HR. WE WILL ADMINISTER A DULCOLAX SUPPOSITORY X 1 DOSE. OTHERWISE, WE PLAN TO FOLLOW-UP WITH AM LABS AND CHEST XRAY AND CONTINUE TO MONITOR. TIME SPENT ON CLINICAL ASSESSMENT, REVIWING LABS AND IMAGING, DECISION MAKING, AND DOCUMENTATION GREATER THAN 45 MINUTES. - Past Medical Family Social History Past Med/Fam/Surg Hx: No changes since H&P Allergies: Allergies No Known Drug Allergies Allergy (Verified 09/04/19 10:48) - Review of Systems ROS: No change since H&P - Vital Signs and I&O's Vital Signs: Temperature 98.6 F Pulse Rate 80 Respiratory Rate 20 Blood Pressure [Right Arm] 98/55 Blood Pressure [Right Calf] 108/59 Blood Pressure [Right Arm] 115/54 Blood Pressure 103/58 O2 Sat by Pulse Oximetry 100 Intake and Output: Intake & Output 06/29/22 06/30/22 07/01/22 07/02/22 11:59 11:59 11:59 11:59 Intake Total 2374 / 2374 3346 / 3346 1483 / 1483 Output Total 275 / 275 4865 / 4865 1085 / 1085 Balance 2099 / 2098 -1519 / -1519 398 / 398 - Physical Exam Oriented: Unable to test Eyes: Normal Ear: Normal Nose: Normal Throat: Normal Respiratory: Generalized, Rhonchi Cardiovascular: Normal : Normal Auscultation: Bowel Sounds: Normal Palpation: Normal Tenderness: Other (DISTENTION, PEG TUBE PRESENT ) Skin: Decreased Turgur Psychiatric: Other (LETHARGIC ) Mood Description: Flat Affect: Flat Speech Pattern: Aphasic - Laboratory and Diagnostics Result Diagrams: 07/01/22 04:35 07/01/22 04:35 Labs: 06/29/22 13:26 Blood Blood Culture - Preliminary 06/29/22 13:17 Blood Blood Culture - Preliminary Laboratory WBC 5.6 X10^3/uL (3.6-10.0) 07/01/22 04:35 RBC 2.56 X10^6/uL (3.5-5.4) L 07/01/22 04:35 Hgb 8.7 g/dL (12.0-16.0) L D 07/01/22 04:35 Hct 24.7 % (36.0-47.0) L 07/01/22 04:35 MCV 96.5 fL (80.0-100.0) 07/01/22 04:35 MCH 34.2 pg (27.0-34.0) H 07/01/22 04:35 MCHC 35.5 g/dL (33.0-35.0) H 07/01/22 04:35 RDW 12.7 % (11.6-16.5) 07/01/22 04:35 Plt Count 126 X10^3/uL (150.0-450.0) L 07/01/22 04:35 Plt Count Comment Decreased (ADEQUATE) A 07/01/22 04:35 MPV 11.1 fL (7.4-11.0) H 07/01/22 04:35 Neut % (Auto) 91.1 % (42.0-75.0) H 07/01/22 04:35 Lymph % (Auto) 4.2 % (21.0-51.0) L 07/01/22 04:35 [place] % (Auto) 4.6 % (0.0-13.0) 07/01/22 04:35 Eos % (Auto) 0.0 % (0.9-2.9) L 07/01/22 04:35 Baso % (Auto) 0.1 % (0.2-1.0) L 07/01/22 04:35 Neut # (Auto) 5.1 x10^3/uL (2.2-4.8) H 07/01/22 04:35 Lymph # (Auto) 0.2 X10^3/uL (1.3-2.9) L 07/01/22 04:35 [place] # (Auto) 0.3 x10^3/uL (0.3-0.8) 07/01/22 04:35 Eos # (Auto) 0.0 x10^3/uL (0.0-0.2) 07/01/22 04:35 Baso # (Auto) 0.0 X10^3/uL (0.0-0.1) 07/01/22 04:35 Absolute Nucleated RBC 0.0 /100WBC 07/01/22 04:35 Total Counted 100 07/01/22 04:35 Neutrophils % (Manual) 75 % (39-76) 07/01/22 04:35 Band Neutrophils % 12 % (0-10) H 07/01/22 04:35 Lymphocytes % (Manual) 9 % (13-43) L 07/01/22 04:35 Monocytes % (Manual) 1 % (4-9) L 07/01/22 04:35 Eosinophils % (Manual) 1 % (0-6) 06/29/22 10:41 Metamyelocytes % 1 07/01/22 04:35 Myelocytes % 2 07/01/22 04:35 Promyelocytes % 2 06/29/22 17:51 Plt Morphology Comment Normal (NORMAL) 07/01/22 04:35 RBC Morphology Abnormal (NORMAL) A 07/01/22 04:35 Hypochromasia Slight A 07/01/22 04:35 PT 20.4 SECONDS (11.8-14.3) 06/29/22 13:17 INR Target Range - 06/29/22 13:17 INR 1.82 (0.8-1.3) H 06/29/22 13:17 APTT 36.5 SECONDS (22.9-36.5) 06/29/22 13:17 PTT Comment - 06/29/22 13:17 Sample Site Lbra 06/30/22 07:00 ABG pH 7.450 (7.35-7.45) 06/30/22 07:00 ABG pCO2 42.0 mmHg (35.0-45.0) 06/30/22 07:00 ABG pO2 409.0 mmHg (80.0-100.0) H 06/30/22 07:00 ABG HCO3 29.2 mmol/L (22-26) H 06/30/22 07:00 ABG O2 Saturation 100.0 % (90-100) 06/30/22 07:00 ABG Base Excess 4.7 mmol/L (-2.0-2.0) H 06/30/22 07:00 Mohsen Test N/a 06/30/22 07:00 A-a Gradient 180.0 mmHg 06/30/22 07:00 FiO2 90.0 06/30/22 07:00 Blood Gas Comments Srikanth well ms/sd 06/30/22 07:00 Sodium 143 mmol/L (136-145) 07/01/22 04:35 Corrected Sodium 144 mmol/L (136-145) 07/01/22 04:35 Potassium 3.5 mmol/L (3.5-5.1) 07/01/22 04:35 Chloride 105 mmol/L (98-107) 07/01/22 04:35 Carbon Dioxide 31.9 mmol/L (21-32) 07/01/22 04:35 BUN 33 mg/dL (7-18) H 07/01/22 04:35 Creatinine 0.76 mg/dL (0.55-1.02) 07/01/22 04:35 Est GFR (MDRD) Af Amer > 60 (>60) 07/01/22 04:35 Est GFR (MDRD) Non-Af > 60 (>60) 07/01/22 04:35 Glucose 144 mg/dL (65-99) H 07/01/22 04:35 POC Glucose (mg/dL) 113 mg/dL (65-99) H 07/01/22 14:15 Lactic Acid 1.9 mmol/L (0.4-2.0) 06/29/22 23:45 Calcium 8.4 mg/dL (8.5-10.1) L 07/01/22 04:35 Corrected Calcium 9.7 mg/dL (8.5-10.1) 07/01/22 04:35 Phosphorus 7.0 mg/dL (2.6-4.7) H 06/29/22 10:56 Magnesium 2.6 mg/dL (2.0-2.9) 06/29/22 10:56 Total Bilirubin 0.30 mg/dL (0.2-1.0) 07/01/22 04:35 AST 109 Units/L (15-37) H 07/01/22 04:35 ALT 61 Units/L (12-78) 07/01/22 04:35 Alkaline Phosphatase 40 Units/L (46-116) L 07/01/22 04:35 Creatine Kinase 2743 Units/L (26-192) H 06/29/22 23:45 Troponin I High Sens 70.8 ng/L (4.0-60.0) H* 06/30/22 04:27 Total Protein 5.4 g/dL (6.4-8.2) L 07/01/22 04:35 Albumin 2.4 g/dL (3.4-5.0) L 07/01/22 04:35 Globulin 3.0 g/dL (2.5-4.5) 07/01/22 04:35 Albumin/Globulin Ratio 0.8 Ratio (1.1-2.1) L 07/01/22 04:35 Amylase 136 Units/L (25-115) H 06/29/22 10:56 Lipase 112 Units/L (73-393) 06/29/22 10:56 Specimen Type Catherized urine 06/29/22 12:20 Urine Color Yellow (YELLOW) 06/29/22 12:20 Urine Appearance Hazy (CLEAR) 06/29/22 12:20 Urine pH 7.0 (5.0 - 8.0) 06/29/22 12:20 Ur Specific [place] 1.015 (1.000-1.030) 06/29/22 12:20 Urine Protein 2+ (NEGATIVE) 06/29/22 12:20 Urine Glucose (UA) Negative (NEGATIVE) 06/29/22 12:20 Urine Ketones Negative (NEGATIVE) 06/29/22 12:20 Urine Blood 3+ (NEGATIVE) 06/29/22 12:20 Urine Nitrite Negative (NEGATIVE) 06/29/22 12:20 Urine Bilirubin Negative (NEGATIVE) 06/29/22 12:20 Urine Urobilinogen Normal (NORMAL) 06/29/22 12:20 Ur Leukocyte Esterase 1+ (NEGATIVE) 06/29/22 12:20 Urine RBC 5-10 /HPF (0-3) A 06/29/22 12:20 Urine WBC 3-5 /HPF (0-5) 06/29/22 12:20 Ur Squamous Epith Cells Few /HPF (NEGATIVE) 06/29/22 12:20 Calcium Oxalate Crystal Few /HPF (NEGATIVE) 06/29/22 12:20 Urine Bacteria Trace /HPF (NEGATIVE) 06/29/22 12:20 Urine Mucus Moderate /HPF (NEGATIVE) 06/29/22 12:20 Urine Yeast Moderate /HPF (NEGATIVE) 06/29/22 12:20 Ur Culture Indicated? No/not indicated 06/29/22 12:20 Gastric Fluid pH 3 06/30/22 18:06 Gastric Occult Blood Positive (NEGATIVE) A 06/30/22 18:06 SARS-CoV-2 (PCR) Negative (NEGATIVE) 06/29/22 10:30 Influenza Type A (PCR) Negative (NEGATIVE) 06/29/22 10:30 Influenza Type B (PCR) Negative (NEGATIVE) 06/29/22 10:30 RSV (PCR) Negative (NEGATIVE) 06/29/22 10:30 Resp Viral Panel (PCR) See scanned report 06/29/22 11:03 - Plan (1) Aspiration pneumonia Status: Acute Qualifiers: Aspiration pneumonia type: unspecified Laterality: right Lung location: lower lobe of lung Qualified Code(s): J69.0 - Pneumonitis due to inhalation of food and vomit Plan: SUPPLEMENTAL OXYGEN, D5W AT 125 ML/HR, ZOSYN 3.375G IV BID, LEVAQUIN 500MG IV Q48H, LOVENOX 30MG SC DAILY, DUONEBS QID, SOLU-MEDROL 80MG IV Q8H. (2) Septic shock Status: Acute (3) Hypoxia Status: Acute (4) Respiratory distress Status: Acute (5) Hypernatremia Status: Acute (6) Parkinson disease Status: Chronic (7) Macular dystrophy Status: Chronic
--- NOTE | 2022-07-01 18:09 | PCM.PROG ---
Progress Note - Progress Note for Day of Date of Exam: 07/01/22 - Subjective Subjective: IS CURRENTLY INPATIENT STATUS FOR TREATMENT OF ASPIRATION PNEUMONIA, SEPTIC SHOCK, DEHYDRATION, HYPOXIA, AND HYPERNATREMIA. SHE HAS A HX OF PARKINSONS, MUSCULAR DYSTROPHY, AND IS BED/WHEELCHAIR RIDDEN. HER PARENTS ARE AT BEDSIDE. TODAY, SHE IS LYING IN BED WITH EYES CLOSED ON MORNING ROUNDS. SHE DOES NOT AWAKEN TO VERBAL STIMULI, BUT MOANS WHILE WE ARE EXAMINING HER. SHE IS CURRENTLY UTILIZING OXYGEN VIA NASAL CANNULA AT 3 LPM. SHE USED THE BIPAP THROUGHOUT THE NIGHT. UPON EXAMINATION TODAY, HEART IS REGULAR IN RATE AND RHYTHM. BILATERAL LUNGS ARE NOTED WITH RHONCHI THROUGHOUT. ABDOMEN IS ROUND, SOFT, AND NON-TENDER WITH NORMAL BOWEL SOUNDS NOTED IN ALL QUADRANTS. G-TUBE IS NOTED. NO UPPER OR LOWER EXTREMITY EDEMA NOTED. HER VITALS THIS MORNING ARE: 97.4-79-15-99%-102/72. LABS WERE OBTAINED. ABNORMAL LAB VALUES INCLUDE THE FOLLOWING: WBC 5.6, RBC 2.56, HGB 8.7, HCT 24.7, PLT COUNT 126, SODIUM 143, POTASSIUM 3.5, BUN 33, CREATININE 0.76, GLUCOSE 144, CALCIUM 8.4, AST 109, ALT 61, ALK PHOS 40, TOTAL PROTEIN 5.4, ALBUMIN 2.4. BLOOD CULTURES ARE PENDING. A CHEST XRAY WAS OBTAINED THIS MORNING AND REVEALED: Similar appearance of right lung airspace opacity that may be due to aspiration pneumonia. SHE IS CURRENTLY RECEIVING D5W AT 125 ML/HR, ZOSYN 3.375G IV BID, LEVAQUIN 500MG IV Q48H, LOVENOX 30MG SC DAILY, DUONEBS QID, SOLU-MEDROL 80MG IV Q8H. WE WILL CONTINUE WITH CURRENT PLAN OF CARE TODAY AND ADD PERIPHERAL TPN. OTHERWISE, WE PLAN TO FOLLOW- UP WITH AM LABS AND CHEST XRAY AND CONTINUE TO MONITOR. TIME SPENT ON CLINICAL ASSESSMENT, REVIWING LABS AND IMAGING, DECISION MAKING, AND DOCUMENTATION GREATER THAN 45 MINUTES. - Past Medical Family Social History Past Med/Fam/Surg Hx: No changes since H&P Allergies: Allergies No Known Drug Allergies Allergy (Verified 09/04/19 10:48) - Review of Systems ROS: No change since H&P - Vital Signs and I&O's Vital Signs: Temperature 98.6 F Pulse Rate 80 Respiratory Rate 20 Blood Pressure [Right Arm] 98/55 Blood Pressure [Right Calf] 108/59 Blood Pressure [Right Arm] 115/54 Blood Pressure 103/58 O2 Sat by Pulse Oximetry 100 Intake and Output: Intake & Output 06/29/22 06/30/22 07/01/22 07/02/22 11:59 11:59 11:59 11:59 Intake Total 2374 / 2374 3346 / 3346 1483 / 1483 Output Total 275 / 275 4865 / 4865 1085 / 1085 Balance 2099 / 2099 -1519 / -1519 398 / 398 - Physical Exam Oriented: Unable to test Eyes: Normal Ear: Normal Nose: Normal Throat: Normal Respiratory: Generalized, Rhonchi Cardiovascular: Normal : Normal Auscultation: Bowel Sounds: Normal Palpation: Normal Tenderness: Other (DISTENTION, PEG TUBE PRESENT ) Skin: Decreased Turgur Psychiatric: Other (LETHARGIC ) Mood Description: Flat Affect: Flat Speech Pattern: Aphasic - Laboratory and Diagnostics Result Diagrams: 07/01/22 04:35 07/01/22 04:35 Labs: 06/29/22 13:26 Blood Blood Culture - Preliminary 06/29/22 13:17 Blood Blood Culture - Preliminary Laboratory WBC 5.6 X10^3/uL (3.6-10.0) 07/01/22 04:35 RBC 2.56 X10^6/uL (3.5-5.4) L 07/01/22 04:35 Hgb 8.7 g/dL (12.0-16.0) L D 07/01/22 04:35 Hct 24.7 % (36.0-47.0) L 07/01/22 04:35 MCV 96.5 fL (80.0-100.0) 07/01/22 04:35 MCH 34.2 pg (27.0-34.0) H 07/01/22 04:35 MCHC 35.5 g/dL (33.0-35.0) H 07/01/22 04:35 RDW 12.7 % (11.6-16.5) 07/01/22 04:35 Plt Count 126 X10^3/uL (150.0-450.0) L 07/01/22 04:35 Plt Count Comment Decreased (ADEQUATE) A 07/01/22 04:35 MPV 11.1 fL (7.4-11.0) H 07/01/22 04:35 Neut % (Auto) 91.1 % (42.0-75.0) H 07/01/22 04:35 Lymph % (Auto) 4.2 % (21.0-51.0) L 07/01/22 04:35 [place] % (Auto) 4.6 % (0.0-13.0) 07/01/22 04:35 Eos % (Auto) 0.0 % (0.9-2.9) L 07/01/22 04:35 Baso % (Auto) 0.1 % (0.2-1.0) L 07/01/22 04:35 Neut # (Auto) 5.1 x10^3/uL (2.2-4.8) H 07/01/22 04:35 Lymph # (Auto) 0.2 X10^3/uL (1.3-2.9) L 07/01/22 04:35 [place] # (Auto) 0.3 x10^3/uL (0.3-0.8) 07/01/22 04:35 Eos # (Auto) 0.0 x10^3/uL (0.0-0.2) 07/01/22 04:35 Baso # (Auto) 0.0 X10^3/uL (0.0-0.1) 07/01/22 04:35 Absolute Nucleated RBC 0.0 /100WBC 07/01/22 04:35 Total Counted 100 07/01/22 04:35 Neutrophils % (Manual) 75 % (39-76) 07/01/22 04:35 Band Neutrophils % 12 % (0-10) H 07/01/22 04:35 Lymphocytes % (Manual) 9 % (13-43) L 07/01/22 04:35 Monocytes % (Manual) 1 % (4-9) L 07/01/22 04:35 Eosinophils % (Manual) 1 % (0-6) 06/29/22 10:41 Metamyelocytes % 1 07/01/22 04:35 Myelocytes % 2 07/01/22 04:35 Promyelocytes % 2 06/29/22 17:51 Plt Morphology Comment Normal (NORMAL) 07/01/22 04:35 RBC Morphology Abnormal (NORMAL) A 07/01/22 04:35 Hypochromasia Slight A 07/01/22 04:35 PT 20.4 SECONDS (11.8-14.3) 06/29/22 13:17 INR Target Range - 06/29/22 13:17 INR 1.82 (0.8-1.3) H 06/29/22 13:17 APTT 36.5 SECONDS (22.9-36.5) 06/29/22 13:17 PTT Comment - 06/29/22 13:17 [facility] 07:00 ABG pH 7.450 (7.35-7.45) 06/30/22 07:00 ABG pCO2 42.0 mmHg (35.0-45.0) 06/30/22 07:00 ABG pO2 409.0 mmHg (80.0-100.0) H 06/30/22 07:00 ABG HCO3 29.2 mmol/L (22-26) H 06/30/22 07:00 ABG O2 Saturation 100.0 % (90-100) 06/30/22 07:00 ABG Base Excess 4.7 mmol/L (-2.0-2.0) H 06/30/22 07:00 Mohsen Test N/a 06/30/22 07:00 A-a Gradient 180.0 mmHg 06/30/22 07:00 FiO2 90.0 06/30/22 07:00 Blood Gas Comments Srikanth well ms/sd 06/30/22 07:00 Sodium 143 mmol/L (136-145) 07/01/22 04:35 Corrected Sodium 144 mmol/L (136-145) 07/01/22 04:35 Potassium 3.5 mmol/L (3.5-5.1) 07/01/22 04:35 Chloride 105 mmol/L (98-107) 07/01/22 04:35 Carbon Dioxide 31.9 mmol/L (21-32) 07/01/22 04:35 BUN 33 mg/dL (7-18) H 07/01/22 04:35 Creatinine 0.76 mg/dL (0.55-1.02) 07/01/22 04:35 Est GFR (MDRD) Af Amer > 60 (>60) 07/01/22 04:35 Est GFR (MDRD) Non-Af > 60 (>60) 07/01/22 04:35 Glucose 144 mg/dL (65-99) H 07/01/22 04:35 POC Glucose (mg/dL) 113 mg/dL (65-99) H 07/01/22 14:15 Lactic Acid 1.9 mmol/L (0.4-2.0) 06/29/22 23:45 Calcium 8.4 mg/dL (8.5-10.1) L 07/01/22 04:35 Corrected Calcium 9.7 mg/dL (8.5-10.1) 07/01/22 04:35 Phosphorus 7.0 mg/dL (2.6-4.7) H 06/29/22 10:56 Magnesium 2.6 mg/dL (2.0-2.9) 06/29/22 10:56 Total Bilirubin 0.30 mg/dL (0.2-1.0) 07/01/22 04:35 AST 109 Units/L (15-37) H 07/01/22 04:35 ALT 61 Units/L (12-78) 07/01/22 04:35 Alkaline Phosphatase 40 Units/L (46-116) L 07/01/22 04:35 Creatine Kinase 2743 Units/L (26-192) H 06/29/22 23:45 Troponin I High Sens 70.8 ng/L (4.0-60.0) H* 06/30/22 04:27 Total Protein 5.4 g/dL (6.4-8.2) L 07/01/22 04:35 Albumin 2.4 g/dL (3.4-5.0) L 07/01/22 04:35 Globulin 3.0 g/dL (2.5-4.5) 07/01/22 04:35 Albumin/Globulin Ratio 0.8 Ratio (1.1-2.1) L 07/01/22 04:35 Amylase 136 Units/L (25-115) H 06/29/22 10:56 Lipase 112 Units/L (73-393) 06/29/22 10:56 Specimen Type Catherized urine 06/29/22 12:20 Urine Color Yellow (YELLOW) 06/29/22 12:20 Urine Appearance Hazy (CLEAR) 06/29/22 12:20 Urine pH 7.0 (5.0 - 8.0) 06/29/22 12:20 Ur Specific [place] 1.015 (1.000-1.030) 06/29/22 12:20 Urine Protein 2+ (NEGATIVE) 06/29/22 12:20 Urine Glucose (UA) Negative (NEGATIVE) 06/29/22 12:20 Urine Ketones Negative (NEGATIVE) 06/29/22 12:20 Urine Blood 3+ (NEGATIVE) 06/29/22 12:20 Urine Nitrite Negative (NEGATIVE) 06/29/22 12:20 Urine Bilirubin Negative (NEGATIVE) 06/29/22 12:20 Urine Urobilinogen Normal (NORMAL) 06/29/22 12:20 Ur Leukocyte Esterase 1+ (NEGATIVE) 06/29/22 12:20 Urine RBC 5-10 /HPF (0-3) A 06/29/22 12:20 Urine WBC 3-5 /HPF (0-5) 06/29/22 12:20 Ur Squamous Epith Cells Few /HPF (NEGATIVE) 06/29/22 12:20 Calcium Oxalate Crystal Few /HPF (NEGATIVE) 06/29/22 12:20 Urine Bacteria Trace /HPF (NEGATIVE) 06/29/22 12:20 Urine Mucus Moderate /HPF (NEGATIVE) 06/29/22 12:20 Urine Yeast Moderate /HPF (NEGATIVE) 06/29/22 12:20 Ur Culture Indicated? No/not indicated 06/29/22 12:20 Gastric Fluid pH 3 06/30/22 18:06 Gastric Occult Blood Positive (NEGATIVE) A 06/30/22 18:06 SARS-CoV-2 (PCR) Negative (NEGATIVE) 06/29/22 10:30 Influenza Type A (PCR) Negative (NEGATIVE) 06/29/22 10:30 Influenza Type B (PCR) Negative (NEGATIVE) 06/29/22 10:30 RSV (PCR) Negative (NEGATIVE) 06/29/22 10:30 Resp Viral Panel (PCR) See scanned report 06/29/22 11:03 - Plan (1) Aspiration pneumonia Status: Acute Qualifiers: Aspiration pneumonia type: unspecified Laterality: right Lung location: lower lobe of lung Qualified Code(s): J69.0 - Pneumonitis due to inhalation of food and vomit Plan: SUPPLEMENTAL OXYGEN, D5W AT 125 ML/HR, PERIPERAL TPN, ZOSYN 3.375G IV BID, LEVAQUIN 500MG IV Q48H, LOVENOX 30MG SC DAILY, DUONEBS QID, SOLU-MEDROL 80MG IV Q8H. (2) Septic shock Status: Acute (3) Hypoxia Status: Acute (4) Respiratory distress Status: Acute (5) Hypernatremia Status: Acute (6) Parkinson disease Status: Chronic (7) Macular dystrophy Status: Chronic
[2022-07-01] MEDS: LIPOSYN III 20% 100ML 100 ML IV SCH (20:43)
[2022-07-01] MEDS: BUTT CREAM (COMPOUND) TOP PRN (23:40)
[2022-07-02] MEDS ORDERED: NS 100 ML IV 100 ML ONE ×2 (03:42→10:40)
[2022-07-02] MEDS: [UNRECOGNIZED DRUG - REMARK] IV SCH ×12 (04:15→14:29)
[2022-07-02] MEDS: SOLU-Medrol 40 MG VIAL IVP SCH ×3 (04:59→21:30)
[2022-07-02] MEDS: ZOSYN VIAL 3.375 GRAMS 3.375 G in NS 100 ML IV 100 ML IV SCH ×3 (05:00→21:00)
[2022-07-02 05:01] LABS: BASOPHILS % (AUTO) 0.3 % (0.2-1.0); HEMATOCRIT 23.5 % (36.0-47.0); HEMOGLOBIN 8.3 g/dL (12.0-16.0); LYMPHOCYTES # (AUTO) 0.3 X10^3/uL (1.3-2.9); LYMPHOCYTES % (AUTO) 4.6 % (21.0-51.0); MEAN CORPUSCULAR HEMOGLOBIN 33.8 pg (27.0-34.0); MEAN CORPUSCULAR HGB CONC 35.2 g/dL (33.0-35.0); MEAN PLATELET VOLUME 11.2 fL (7.4-11.0); MONOCYTES # (AUTO) 0.4 x10^3/uL (0.3-0.8); NEUTROPHILS # (AUTO) 5.2 x10^3/uL (2.2-4.8); NEUTROPHILS % (AUTO) 88.1 % (42.0-75.0); RED BLOOD COUNT 2.45 X10^6/uL (3.5-5.4); RED CELL DISTRIBUTION WIDTH 12.5 % (11.6-16.5); WHITE BLOOD COUNT 5.9 X10^3/uL (3.6-10.0)
[2022-07-02 05:12] LABS: BLOOD UREA NITROGEN 35 mg/dL (7-18); CALCIUM 8.4 mg/dL (8.5-10.1); CARBON DIOXIDE 35.5 mmol/L (21-32); CHLORIDE 104 mmol/L (98-107); CREATININE 0.51 mg/dL (0.55-1.02); MAGNESIUM 1.4 mg/dL (2.0-2.9); PHOSPHORUS 1.1 mg/dL (2.6-4.7); SODIUM 141 mmol/L (136-145); TRIGLYCERIDES 30 mg/dL (0-150); eGFR NON BLACK RACES > 60 (>60)
[2022-07-02 05:34] LABS: BAND NEUTROPHILS % 10 % (0-10); METAMYELOCYTES % 1
[2022-07-02 05:35] LABS: PLATELET MORPHOLOGY COMMENT NORMAL (NORMAL)
[2022-07-02] MEDS ORDERED: KETAMINE HCL ONE (07:05)
[2022-07-02] MEDS ORDERED: DIPRIVAN VIAL 20 ML ONE (07:05)
[2022-07-02] MEDS ORDERED: FENTANYL VIAL INJ 100 mcg ONE (07:05)
[2022-07-02] MEDS ORDERED: VERSED ONE (07:05)
[2022-07-02] MEDS ORDERED: POLYMYXIN B SULFATE ONE (07:22)
[2022-07-02] MEDS ORDERED: XYLOCAINE 1 % (PLAIN) ONE ×2 (07:22→08:22)
[2022-07-02] MEDS ORDERED: NS 1,000 ML IV 1,000 ML ONE (07:35)
--- NOTE | 2022-07-02 08:13 | RAD ---
HISTORYshortness of breathSTUDYCHEST, 1 [id number]/10/2022.TECHNIQUEAP view of the chestFINDINGSCardiac and mediastinal contours are within normal limits. External wires are noted. Interval worsening of left perihilar airspace opacity. Right mid lower lung airspace opacity appears similar. Blunted costophrenic sulci. No pneumothorax.IMPRESSIONWorse left perihilar airspace opacity. Right lung airspace opacity appears similar. This may represent pneumonia. Blunted costophrenic sulci can be seen with small pleural effusions or pleuro-parynchemal scarring.Electronically signed by: Jimy Perdomo (Jul 02, 2022 08:11:11)
[2022-07-02] MEDS: DUONEB 0.5 MG/3 MG (3 mL) NEB SCH ×4 (09:00→20:38)
[2022-07-02] MEDS: LOVENOX INJ 30 MG SYR SC SCH (09:16)
[2022-07-02] MEDS: LEVAQUIN PREMIX IV 500 MG 500 MG/100 ML BAG IV SCH (11:05)
[2022-07-02] MEDS: LEVSIN/MAALOX/LIDOC VISC PO SCH ×5 (11:05→20:13)
[2022-07-02] MEDS: REGLAN INJ 10 MG VIAL IVP SCH ×2 (11:05→18:07)
[2022-07-02] MEDS: PROTONIX INJ 40 MG VIAL IVP SCH (11:06)
[2022-07-02] MEDS: PEPCID 20 MG VIAL 20 MG in NS 50 ML IV 50 ML IV SCH ×2 (11:07→21:31)
--- NOTE | 2022-07-02 11:32 | PCM.PROG ---
Progress Note - Progress Note for Day of Date of Exam: 07/02/22 - Subjective Subjective: IS CURRENTLY INPATIENT STATUS FOR TREATMENT OF ASPIRATION PNEUMONIA, SEPTIC SHOCK, DEHYDRATION, HYPOXIA, AND HYPERNATREMIA. SHE HAS A HX OF PARKINSONS, MUSCULAR DYSTROPHY, AND IS BED/WHEELCHAIR RIDDEN. HER PARENTS ARE AT BEDSIDE. TODAY, SHE IS LYING IN BED WITH EYES CLOSED ON MORNING ROUNDS. SHE OPENS EYES TO VERBAL STIMULI, BUT IS UNABLE TO FOLLOW COMMANDS. SHE IS CURRENTLY UTILIZING OXYGEN VIA NASAL CANNULA AT 3 LPM. SATURATIONS HAVE REMAINED ABOVE 90%. SHE WAS FEBRILE THROUGHOUT THE NIGHT WITH TEMPERATURE REACHING 100.7. STAFF REPORTS THAT PATIENT HAS HAD A MODERATE AMOUNT OF RESIDUAL IN PEG TUBE. SHE HAS ONLY BEEN RECEIVING MEDS THROUGH THE PEG TUBE, BUT NO FEEDINGS. CONTENTS WERE ASPIRATED LAST NIGHT. UPON ASPIRATION, COFFEE GROUND CONTENTS WERE NOTED. UPON EXAMINATION TODAY, HEART IS REGULAR IN RATE AND RHYTHM. BILATERAL LUNGS ARE NOTED WITH RHONCHI THROUGHOUT. ABDOMEN IS ROUND, SOFT, AND NON-TENDER WITH NORMAL BOWEL SOUNDS NOTED IN ALL QUADRANTS. G-TUBE IS NOTED. NO UPPER OR LOWER EXTREMITY EDEMA NOTED. HER VITALS THIS MORNING ARE: 97.3-70-18-98%-86/49. LABS W ERE OBTAINED. ABNORMAL LAB VALUES INCLUDE THE FOLLOWING: WBC 5.9, RBC 2.45, HGB 8.3, HCT 23.5, PLT COUNT 124, SODIUM 141, POTASSIUM 3.1, CHLORIDE 104, CARBON DIOXIDE 35.5, BUN 35, CREATININE 0.51, GLUCOSE 99, CALCIUM 8.4, PHOSPHORUS 1.1, MAGNESIUM 1.4, TRIGLYCERIDES 30, PREALBUMIN 14.0. BLOOD CULTURES ARE PENDING. A CHEST XRAY WAS OBTAINED THIS MORNING AND REVEALED: Worse left perihilar airspace opacity. Right lung airspace opacity appears similar. This may represent pneumonia. Blunted costophrenic sulci can be seen with small pleural effusions or pleuro-parynchemal scarring. SHE IS CURRENTLY RECEIVING TPN AT 125 ML/HR, ZOSYN 3.375G IV BID, LEVAQUIN 500MG IV Q48H, LOVENOX 30MG SC DAILY, DUONEBS QID, SOLU-MEDROL 80MG IV Q8H. TODAY, WE WILL ADD REGLAN 5MG IV TID, PEPCID 20MG IV BID, PROTONIX 40MG IV DAILY, AND GI COCTAIL 10ML QID. SHE HAD PLACEMENT OF A PORT A CATH THIS MORNING. OTHERWISE, WE WILL CONTINUE WITH CURRENT PLAN OF CARE TODAY. WE PLAN TO FOLLOW-UP WITH AM LABS AND CHEST XRAY AND CONTINUE TO MONITOR. TIME SPENT ON CLINICAL ASSESSMENT, REVIWING LABS AND IMAGING, DECISION MAKING, AND DOCUMENTATION GREATER THAN 45 MINUTES. - Past Medical Family Social History Past Med/Fam/Surg Hx: No changes since H&P Allergies: Allergies No Known Drug Allergies Allergy (Verified 09/04/19 10:48) - Review of Systems ROS: No change since H&P - Vital Signs and I&O's Vital Signs: Temperature 97.0 F Pulse Rate 64 Respiratory Rate 18 Blood Pressure [Right Arm] 98/55 Blood Pressure [Right Calf] 108/59 Blood Pressure [Right Arm] 115/54 Blood Pressure 93/60 O2 Sat by Pulse Oximetry 98 Intake and Output: Intake & Output 06/29/22 06/30/22 07/01/22 07/02/22 11:59 11:59 11:59 11:59 Intake Total 2374 / 2374 3346 / 3346 3423 / 3423 Output Total 275 / 275 4865 / 4865 3520 / 3520 Balance 2099 / 2099 -1519 / -1519 -97 / -97 - Physical Exam Oriented: Unable to test Eyes: Normal Ear: Normal Nose: Normal Throat: Normal Respiratory: Generalized, Rhonchi Cardiovascular: Normal : Normal Auscultation: Bowel Sounds: Normal Palpation: Normal Tenderness: Other (DISTENTION, PEG TUBE PRESENT ) Skin: Decreased Turgur Psychiatric: Other (LETHARGIC ) Mood Description: Calm Affect: Flat Speech Pattern: Aphasic - Laboratory and Diagnostics Result Diagrams: 07/02/22 04:35 07/02/22 04:35 Labs: 06/29/22 13:26 Blood Blood Culture - Preliminary 06/29/22 13:17 Blood Blood Culture - Preliminary Laboratory WBC 5.9 X10^3/uL (3.6-10.0) 07/02/22 04:35 RBC 2.45 X10^6/uL (3.5-5.4) L 07/02/22 04:35 Hgb 8.3 g/dL (12.0-16.0) L 07/02/22 04:35 Hct 23.5 % (36.0-47.0) L 07/02/22 04:35 MCV 96.0 fL (80.0-100.0) 07/02/22 04:35 MCH 33.8 pg (27.0-34.0) 07/02/22 04:35 MCHC 35.2 g/dL (33.0-35.0) H 07/02/22 04:35 RDW 12.5 % (11.6-16.5) 07/02/22 04:35 Plt Count 124 X10^3/uL (150.0-450.0) L 07/02/22 04:35 Plt Count Comment Decreased (ADEQUATE) A 07/02/22 04:35 MPV 11.2 fL (7.4-11.0) H 07/02/22 04:35 Neut % (Auto) 88.1 % (42.0-75.0) H 07/02/22 04:35 Lymph % (Auto) 4.6 % (21.0-51.0) L 07/02/22 04:35 [place] % (Auto) 7.0 % (0.0-13.0) 07/02/22 04:35 Eos % (Auto) 0.0 % (0.9-2.9) L 07/02/22 04:35 Baso % (Auto) 0.3 % (0.2-1.0) 07/02/22 04:35 Neut # (Auto) 5.2 x10^3/uL (2.2-4.8) H 07/02/22 04:35 Lymph # (Auto) 0.3 X10^3/uL (1.3-2.9) L 07/02/22 04:35 [place] # (Auto) 0.4 x10^3/uL (0.3-0.8) 07/02/22 04:35 Eos # (Auto) 0.0 x10^3/uL (0.0-0.2) 07/02/22 04:35 Baso # (Auto) 0.0 X10^3/uL (0.0-0.1) 07/02/22 04:35 Absolute Nucleated RBC 0.1 /100WBC 07/02/22 04:35 Total Counted 100 07/02/22 04:35 Neutrophils % (Manual) 74 % (39-76) 07/02/22 04:35 Band Neutrophils % 10 % (0-10) 07/02/22 04:35 Lymphocytes % (Manual) 5 % (13-43) L 07/02/22 04:35 Monocytes % (Manual) 10 % (4-9) H 07/02/22 04:35 Eosinophils % (Manual) 1 % (0-6) 06/29/22 10:41 Metamyelocytes % 1 07/02/22 04:35 Myelocytes % 2 07/01/22 04:35 Promyelocytes % 2 06/29/22 17:51 Plt Morphology Comment Normal (NORMAL) 07/02/22 04:35 RBC Morphology Normal (NORMAL) 07/02/22 04:35 Hypochromasia Slight A 07/01/22 04:35 PT 20.4 SECONDS (11.8-14.3) 06/29/22 13:17 INR Target Range - 06/29/22 13:17 INR 1.82 (0.8-1.3) H 06/29/22 13:17 APTT 36.5 SECONDS (22.9-36.5) 06/29/22 13:17 PTT Comment - 06/29/22 13:17 Sample Site Lbrach 06/30/22 07:00 ABG pH 7.450 (7.35-7.45) 06/30/22 07:00 ABG pCO2 42.0 mmHg (35.0-45.0) 06/30/22 07:00 ABG pO2 409.0 mmHg (80.0-100.0) H 06/30/22 07:00 ABG HCO3 29.2 mmol/L (22-26) H 06/30/22 07:00 ABG O2 Saturation 100.0 % (90-100) 06/30/22 07:00 ABG Base Excess 4.7 mmol/L (-2.0-2.0) H 06/30/22 07:00 Mohsen Test N/a 06/30/22 07:00 A-a Gradient 180.0 mmHg 06/30/22 07:00 FiO2 90.0 06/30/22 07:00 Blood Gas Comments Srikanth well ms/sd 06/30/22 07:00 Sodium 141 mmol/L (136-145) 07/02/22 04:35 Corrected Sodium TNP 07/02/22 04:35 Potassium 3.1 mmol/L (3.5-5.1) L 07/02/22 04:35 Chloride 104 mmol/L (98-107) 07/02/22 04:35 Carbon Dioxide 35.5 mmol/L (21-32) H 07/02/22 04:35 BUN 35 mg/dL (7-18) H 07/02/22 04:35 Creatinine 0.51 mg/dL (0.55-1.02) L 07/02/22 04:35 Est GFR (MDRD) Af Amer > 60 (>60) 07/02/22 04:35 Est GFR (MDRD) Non-Af > 60 (>60) 07/02/22 04:35 Glucose 99 mg/dL (65-99) 07/02/22 04:35 POC Glucose (mg/dL) 126 mg/dL (65-99) H 07/02/22 11:28 Lactic Acid 1.9 mmol/L (0.4-2.0) 06/29/22 23:45 Calcium 8.4 mg/dL (8.5-10.1) L 07/02/22 04:35 Corrected Calcium 9.7 mg/dL (8.5-10.1) 07/01/22 04:35 Phosphorus 1.1 mg/dL (2.6-4.7) L 07/02/22 04:35 Magnesium 1.4 mg/dL (2.0-2.9) L 07/02/22 04:35 Total Bilirubin 0.30 mg/dL (0.2-1.0) 07/01/22 04:35 AST 109 Units/L (15-37) H 07/01/22 04:35 ALT 61 Units/L (12-78) 07/01/22 04:35 Alkaline Phosphatase 40 Units/L (46-116) L 07/01/22 04:35 Creatine Kinase 2743 Units/L (26-192) H 06/29/22 23:45 Troponin I High Sens 70.8 ng/L (4.0-60.0) H* 06/30/22 04:27 Total Protein 5.4 g/dL (6.4-8.2) L 07/01/22 04:35 Albumin 2.4 g/dL (3.4-5.0) L 07/01/22 04:35 Globulin 3.0 g/dL (2.5-4.5) 07/01/22 04:35 Albumin/Globulin Ratio 0.8 Ratio (1.1-2.1) L 07/01/22 04:35 Prealbumin 14.0 mg/dL (18-35.7) L 07/02/22 04:35 Triglycerides 30 mg/dL (0-150) 07/02/22 04:35 Amylase 136 Units/L (25-115) H 06/29/22 10:56 Lipase 112 Units/L (73-393) 06/29/22 10:56 Specimen Type Catherized urine 06/29/22 12:20 Urine Color Yellow (YELLOW) 06/29/22 12:20 Urine Appearance Hazy (CLEAR) 06/29/22 12:20 Urine pH 7.0 (5.0 - 8.0) 06/29/22 12:20 Ur Specific [place] 1.015 (1.000-1.030) 06/29/22 12:20 Urine Protein 2+ (NEGATIVE) 06/29/22 12:20 Urine Glucose (UA) Negative (NEGATIVE) 06/29/22 12:20 Urine Ketones Negative (NEGATIVE) 06/29/22 12:20 Urine Blood 3+ (NEGATIVE) 06/29/22 12:20 Urine Nitrite Negative (NEGATIVE) 06/29/22 12:20 Urine Bilirubin Negative (NEGATIVE) 06/29/22 12:20 Urine Urobilinogen Normal (NORMAL) 06/29/22 12:20 Ur Leukocyte Esterase 1+ (NEGATIVE) 06/29/22 12:20 Urine RBC 5-10 /HPF (0-3) A 06/29/22 12:20 Urine WBC 3-5 /HPF (0-5) 06/29/22 12:20 Ur Squamous Epith Cells Few /HPF (NEGATIVE) 06/29/22 12:20 Calcium Oxalate Crystal Few /HPF (NEGATIVE) 06/29/22 12:20 Urine Bacteria Trace /HPF (NEGATIVE) 06/29/22 12:20 Urine Mucus Moderate /HPF (NEGATIVE) 06/29/22 12:20 Urine Yeast Moderate /HPF (NEGATIVE) 06/29/22 12:20 Ur Culture Indicated? No/not indicated 06/29/22 12:20 Gastric Fluid pH 3 06/30/22 18:06 Gastric Occult Blood Positive (NEGATIVE) A 06/30/22 18:06 SARS-CoV-2 (PCR) Negative (NEGATIVE) 06/29/22 10:30 Influenza Type A (PCR) Negative (NEGATIVE) 06/29/22 10:30 Influenza Type B (PCR) Negative (NEGATIVE) 06/29/22 10:30 RSV (PCR) Negative (NEGATIVE) 06/29/22 10:30 Resp Viral Panel (PCR) See scanned report 06/29/22 11:03 - Plan (1) Aspiration pneumonia Status: Acute Qualifiers: Aspiration pneumonia type: unspecified Laterality: right Lung location: lower lobe of lung Qualified Code(s): J69.0 - Pneumonitis due to inhalation of food and vomit Plan: SUPPLEMENTAL OXYGEN, TPN AT 125 ML/HR, PERIPERAL TPN, ZOSYN 3.375G IV BID, LEVAQUIN 500MG IV Q48H, LOVENOX 30MG SC DAILY, DUONEBS QID, SOLU-MEDROL 80MG IV Q8H. (2) Septic shock Status: Acute (3) Hypoxia Status: Acute (4) Respiratory distress Status: Acute (5) Hypernatremia Status: Acute (6) Parkinson disease Status: Chronic (7) Macular dystrophy Status: Chronic
--- NOTE | 2022-07-02 12:39 | RAD ---
HISTORYPORTACATH PLACEMENTSTUDYCHEST x-ray, 1 VIEWCOMPARISONX-ray 07/02/2022FINDINGSRight-sided Port-A-Cath tip is in the region of the mid SVC. No pneumothorax or pleural effusion is seen. Heart is normal size. Persistent prominent density is seen in the right perihilar region it may be mass lesion. No prior CT is available for comparison.[id number] tip appears to be in the region of the mid SVC.Electronically signed by: Mike Robbins (Jul 02, 2022 12:37:29)
[2022-07-02] MEDS ORDERED: [UNRECOGNIZED DRUG - OTHER] IV SCH ×10 (13:00→14:00)
[2022-07-02] MEDS ORDERED: CLINIMIX IV SCH ×10 (13:00→14:00)
[2022-07-02] MEDS ORDERED: TRACE ELEMENTS IV SCH ×10 (13:00→14:00)
[2022-07-02] MEDS ORDERED: MVI IV SCH ×10 (13:00→14:00)
[2022-07-02] MEDS: D5W 1,000 ML IV 1,000 ML IV SCH (13:17)
[2022-07-02] MEDS: PATIENT'S HOME MEDICATION PO PRN ×5 (20:22→20:23)
[2022-07-02] MEDS: LIPOSYN III 20% 100ML 100 ML IV SCH (21:05)
[2022-07-02] MEDS ORDERED: ISOPTO ATROPINE SL PRN (22:54)
[2022-07-03] MEDS: REGLAN INJ 10 MG VIAL IVP SCH ×3 (01:33→18:05)
[2022-07-03] MEDS: PATIENT'S HOME MEDICATION PO PRN ×5 (04:38)
[2022-07-03] MEDS: SOLU-Medrol 40 MG VIAL IVP SCH ×3 (05:15→21:25)
[2022-07-03] MEDS: ZOSYN VIAL 3.375 GRAMS 3.375 G in NS 100 ML IV 100 ML IV SCH ×3 (05:15→21:25)
[2022-07-03 05:48] LABS: BASOPHILS % (AUTO) 0.1 % (0.2-1.0); HEMATOCRIT 24.5 % (36.0-47.0); LYMPHOCYTES # (AUTO) 0.3 X10^3/uL (1.3-2.9); LYMPHOCYTES % (AUTO) 3.6 % (21.0-51.0); MEAN CORPUSCULAR HEMOGLOBIN 35.1 pg (27.0-34.0); MEAN CORPUSCULAR HGB CONC 36.8 g/dL (33.0-35.0); MEAN CORPUSCULAR VOLUME 95.6 fL (80.0-100.0); MEAN PLATELET VOLUME 11.1 fL (7.4-11.0); MONOCYTES # (AUTO) 0.7 x10^3/uL (0.3-0.8); MONOCYTES % (AUTO) 8.3 % (0.0-13.0); NEUTROPHILS # (AUTO) 7.2 x10^3/uL (2.2-4.8); RED BLOOD COUNT 2.56 X10^6/uL (3.5-5.4); RED CELL DISTRIBUTION WIDTH 12.7 % (11.6-16.5); WHITE BLOOD COUNT 8.2 X10^3/uL (3.6-10.0)
[2022-07-03 05:54] LABS: BLOOD UREA NITROGEN 26 mg/dL (7-18); CALCIUM 8.6 mg/dL (8.5-10.1); CARBON DIOXIDE 30.8 mmol/L (21-32); CHLORIDE 107 mmol/L (98-107); COR NA(FOR HYPERGLY) 146 mmol/L (136-145); CREATININE 0.49 mg/dL (0.55-1.02); SODIUM 144 mmol/L (136-145); eGFR NON BLACK RACES > 60 (>60)
[2022-07-03] MEDS: DUONEB 0.5 MG/3 MG (3 mL) NEB SCH ×4 (08:47→21:00)
[2022-07-03] MEDS ORDERED: [UNRECOGNIZED DRUG - OTHER] IV SCH ×6 (09:00)
[2022-07-03] MEDS ORDERED: CLINIMIX IV SCH ×6 (09:00)
[2022-07-03] MEDS ORDERED: TRACE ELEMENTS IV SCH ×6 (09:00)
[2022-07-03] MEDS ORDERED: PATIENT'S HOME MEDICATION PO SCH (09:00)
[2022-07-03] MEDS ORDERED: MVI IV SCH ×6 (09:00)
[2022-07-03] MEDS: LEVAQUIN PREMIX IV 500 MG 500 MG/100 ML BAG IV SCH (09:07)
[2022-07-03] MEDS: PEPCID 20 MG VIAL 20 MG in NS 50 ML IV 50 ML IV SCH ×2 (09:08→20:59)
[2022-07-03] MEDS: LOVENOX INJ 40 MG SYR SC SCH (09:08)
[2022-07-03] MEDS: PROTONIX INJ 40 MG VIAL IVP SCH (09:08)
[2022-07-03] MEDS: LEVSIN/MAALOX/LIDOC VISC PO SCH ×4 (09:09→20:58)
[2022-07-03] MEDS: D5W 1,000 ML IV 1,000 ML IV SCH (09:32)
--- NOTE | 2022-07-03 11:35 | PCM.PROG ---
Progress Note Progress Note for Day of Date of Exam: 07/03/22 Subjective Subjective: IS CURRENTLY INPATIENT STATUS FOR TREATMENT OF ASPIRATION PNEUMONIA, SEPTIC SHOCK, DEHYDRATION, HYPOXIA, AND HYPERNATREMIA. SHE HAS A HX OF PARKINSONS, MUSCULAR DYSTROPHY, AND IS BED/WHEELCHAIR RIDDEN. HER PARENTS ARE AT BEDSIDE. TODAY, SHE IS LYING IN BED WITH EYES CLOSED ON MORNING ROUNDS. SHE OPENS EYES TO VERBAL STIMULI, BUT IS UNABLE TO FOLLOW COMMANDS. SHE IS CURRENTLY UTILIZING OXYGEN VIA NASAL CANNULA AT 3 LPM. SATURATIONS HAVE REMAINED ABOVE 90%. SHE WAS FEBRILE THROUGHOUT THE NIGHT WITH TEMPERATURE REACHING 100.7. STAFF REPORTS THAT PATIENT HAS HAD A MODERATE AMOUNT OF RESIDUAL IN PEG TUBE. SHE HAS ONLY BEEN RECEIVING MEDS THROUGH THE PEG TUBE, BUT NO FEEDINGS. CONTENTS WERE ASPIRATED LAST NIGHT. UPON ASPIRATION, COFFEE GROUND CONTENTS WERE NOTED. UPON EXAMINATION TODAY, HEART IS REGULAR IN RATE AND RHYTHM. BILATERAL LUNGS ARE NOTED WITH RHONCHI THROUGHOUT. ABDOMEN IS ROUND, SOFT, AND NON-TENDER WITH NORMAL BOWEL SOUNDS NOTED IN ALL QUADRANTS. G-TUBE IS NOTED. NO UPPER OR LOWER EXTREMITY EDEMA NOTED. HER VITALS THIS MORNING ARE: 97.3-70-18-98%-86/49. LABS WERE OBTAINED. ABNORMAL LAB VALUES INCLUDE THE FOLLOWING: WBC 5.9, RBC 2.45, HGB 8.3, HCT 23.5, PLT COUNT 124, SODIUM 141, POTASSIUM 3.1, CHLORIDE 104, CARBON DIOXIDE 35.5, BUN 35, CREATININE 0.51, GLUCOSE 99, CALCIUM 8.4, PHOSPHORUS 1.1, MAGNESIUM 1.4, TRIGLYCERIDES 30, PREALBUMIN 14.0. BLOOD CULTURES ARE PENDING. A CHEST XRAY WAS OBTAINED THIS MORNING AND REVEALED: Worse left perihilar airspace opacity. Right lung airspace opacity appears similar. This may represent pneumonia. Blunted costophrenic sulci can be seen with small pleural effusions or pleuro-parynchemal scarring. SHE IS CURRENTLY RECEIVING TPN AT 125 ML/HR, ZOSYN 3.375G IV BID, LEVAQUIN 500MG IV Q48H, LOVENOX 30MG SC DAILY, DUONEBS QID, SOLU-MEDROL 80MG IV Q8H. TODAY, WE WILL ADD REGLAN 5MG IV TID, PEPCID 20MG IV BID, PROTONIX 40MG IV DAILY, AND GI COCTAIL 10ML QID. SHE HAD PLACEMENT OF A PORT A CATH THIS MORNING. OTHERWISE, WE WILL CONTINUE WITH CURRENT PLAN OF CARE TODAY. WE PLAN TO FOLLOW-UP WITH AM LABS AND CHEST XRAY AND CONTINUE TO MONITOR. TIME SPENT ON CLINICAL ASSESSMENT, REVIWING LABS AND IMAGING, DECISION MAKING, AND DOCUMENTATION GREATER THAN 45 MINUTES. Tuesday, 03 July 2022 Patient had no acute problems yesterday or last night. Her hemoglobin is up from 8.0-9.0 this morning. Platelet count stable at 115,000. She is afebrile and her vital signs are stable. I will continue current treatment. Past Medical Family Social History Past Med/Fam/Surg Hx: No changes since H&P Allergies: Allergies No Known Drug Allergies Allergy (Verified 09/04/19 10:48) Review of Systems ROS: No change since H&P Vital Signs and I&O's Vital Signs: Temperature 98.8 F Pulse Rate 77 Respiratory Rate 18 Blood Pressure [Right Arm] 98/55 Blood Pressure [Right Calf] 108/59 Blood Pressure [Right Arm] 115/54 Blood Pressure 93/55 O2 Sat by Pulse Oximetry 100 Intake and Output: Intake & Output 06/30/22 07/01/22 07/02/22 07/03/22 11:59 11:59 11:59 11:59 Intake Total 2374 / 2374 3346 / 3346 3423 / 3423 2499 / 2499 Output Total 275 / 275 4865 / 4865 3520 / 3520 1000 / 1000 Balance 2099 / 2099 -1519 / -1519 -97 / -97 1499 / 1499 Physical Exam Oriented: Unable to test Eyes: Normal Ear: Normal Nose: Normal Throat: Normal Respiratory: Generalized and Rhonchi Cardiovascular: Normal : Normal Auscultation: Bowel Sounds: Normal Tenderness: Other (DISTENTION, PEG TUBE PRESENT ) Skin: Decreased Turgur Psychiatric: Other (LETHARGIC ) Mood Description: Calm Affect: Flat Speech Pattern: Aphasic Laboratory and Diagnostics Result Diagrams: 07/03/22 04:25 07/03/22 04:25 Labs: 06/29/22 13:26 Blood Blood Culture - Preliminary 06/29/22 13:17 Blood Blood Culture - Preliminary Laboratory WBC 8.2 X10^3/uL (3.6-10.0) 07/03/22 04:25 RBC 2.56 X10^6/uL (3.5-5.4) L 07/03/22 04:25 Hgb 9.0 g/dL (12.0-16.0) L 07/03/22 04:25 Hct 24.5 % (36.0-47.0) L 07/03/22 04:25 MCV 95.6 fL (80.0-100.0) 07/03/22 04:25 MCH 35.1 pg (27.0-34.0) H 07/03/22 04:25 MCHC 36.8 g/dL (33.0-35.0) H 07/03/22 04:25 RDW 12.7 % (11.6-16.5) 07/03/22 04:25 Plt Count 115 X10^3/uL (150.0-450.0) L 07/03/22 04:25 Plt Count Comment Decreased (ADEQUATE) A 07/02/22 04:35 MPV 11.1 fL (7.4-11.0) H 07/03/22 04:25 Neut % (Auto) 88.0 % (42.0-75.0) H 07/03/22 04:25 Lymph % (Auto) 3.6 % (21.0-51.0) L 07/03/22 04:25 [place] % (Auto) 8.3 % (0.0-13.0) 07/03/22 04:25 Eos % (Auto) 0.0 % (0.9-2.9) L 07/03/22 04:25 Baso % (Auto) 0.1 % (0.2-1.0) L 07/03/22 04:25 Neut # (Auto) 7.2 x10^3/uL (2.2-4.8) H 07/03/22 04:25 Lymph # (Auto) 0.3 X10^3/uL (1.3-2.9) L 07/03/22 04:25 [place] # (Auto) 0.7 x10^3/uL (0.3-0.8) 07/03/22 04:25 Eos # (Auto) 0.0 x10^3/uL (0.0-0.2) 07/03/22 04:25 Baso # (Auto) 0.0 X10^3/uL (0.0-0.1) 07/03/22 04:25 Absolute Nucleated RBC 0.0 /100WBC 07/03/22 04:25 Total Counted 100 07/02/22 04:35 Neutrophils % (Manual) 74 % (39-76) 07/02/22 04:35 Band Neutrophils % 10 % (0-10) 07/02/22 04:35 Lymphocytes % (Manual) 5 % (13-43) L 07/02/22 04:35 Monocytes % (Manual) 10 % (4-9) H 07/02/22 04:35 Eosinophils % (Manual) 1 % (0-6) 06/29/22 10:41 Metamyelocytes % 1 07/02/22 04:35 Myelocytes % 2 07/01/22 04:35 Promyelocytes % 2 06/29/22 17:51 Plt Morphology Comment Normal (NORMAL) 07/02/22 04:35 RBC Morphology Normal (NORMAL) 07/02/22 04:35 Hypochromasia Slight A 07/01/22 04:35 PT 20.4 SECONDS (11.8-14.3) 06/29/22 13:17 INR Target Range - 06/29/22 13:17 INR 1.82 (0.8-1.3) H 06/29/22 13:17 APTT 36.5 SECONDS (22.9-36.5) 06/29/22 13:17 PTT Comment - 06/29/22 13:17 [facility] 06/30/22 07:00 ABG pH 7.450 (7.35-7.45) 06/30/22 07:00 ABG pCO2 42.0 mmHg (35.0-45.0) 06/30/22 07:00 ABG pO2 409.0 mmHg (80.0-100.0) H 06/30/22 07:00 ABG HCO3 29.2 mmol/L (22-26) H 06/30/22 07:00 ABG O2 Saturation 100.0 % (90-100) 06/30/22 07:00 ABG Base Excess 4.7 mmol/L (-2.0-2.0) H 06/30/22 07:00 Mohsen Test N/a 06/30/22 07:00 A-a Gradient 180.0 mmHg 06/30/22 07:00 FiO2 90.0 06/30/22 07:00 Blood Gas Comments Srikanth well ms/sd 06/30/22 07:00 Sodium 144 mmol/L (136-145) 07/03/22 04:25 Corrected Sodium 146 mmol/L (136-145) H 07/03/22 04:25 Potassium 3.3 mmol/L (3.5-5.1) L 07/03/22 04:25 Chloride 107 mmol/L (98-107) 07/03/22 04:25 Carbon Dioxide 30.8 mmol/L (21-32) 07/03/22 04:25 BUN 26 mg/dL (7-18) H 07/03/22 04:25 Creatinine 0.49 mg/dL (0.55-1.02) L 07/03/22 04:25 Est GFR (MDRD) Af Amer > 60 (>60) 07/03/22 04:25 Est GFR (MDRD) Non-Af > 60 (>60) 07/03/22 04:25 Glucose 187 mg/dL (65-99) H 07/03/22 04:25 POC Glucose (mg/dL) 121 mg/dL (65-99) H 07/03/22 10:52 Lactic Acid 1.9 mmol/L (0.4-2.0) 06/29/22 23:45 Calcium 8.6 mg/dL (8.5-10.1) 07/03/22 04:25 Corrected Calcium 9.7 mg/dL (8.5-10.1) 07/01/22 04:35 Phosphorus 1.1 mg/dL (2.6-4.7) L 07/02/22 04:35 Magnesium 1.3 mg/dL (2.0-2.9) L 07/03/22 04:25 Total Bilirubin 0.30 mg/dL (0.2-1.0) 07/01/22 04:35 AST 109 Units/L (15-37) H 07/01/22 04:35 ALT 61 Units/L (12-78) 07/01/22 04:35 Alkaline Phosphatase 40 Units/L (46-116) L 07/01/22 04:35 Creatine Kinase 2743 Units/L (26-192) H 06/29/22 23:45 Troponin I High Sens 70.8 ng/L (4.0-60.0) H* 06/30/22 04:27 Total Protein 5.4 g/dL (6.4-8.2) L 07/01/22 04:35 Albumin 2.4 g/dL (3.4-5.0) L 07/01/22 04:35 Globulin 3.0 g/dL (2.5-4.5) 07/01/22 04:35 Albumin/Globulin Ratio 0.8 Ratio (1.1-2.1) L 07/01/22 04:35 Prealbumin 14.0 mg/dL (18-35.7) L 07/02/22 04:35 Triglycerides 30 mg/dL (0-150) 07/02/22 04:35 Amylase 136 Units/L (25-115) H 06/29/22 10:56 Lipase 112 Units/L (73-393) 06/29/22 10:56 Cortisol 156.0 ug/dL 06/29/22 11:00 Specimen Type Catherized urine 06/29/22 12:20 Urine Color Yellow (YELLOW) 06/29/22 12:20 Urine Appearance Hazy (CLEAR) 06/29/22 12:20 Urine pH 7.0 (5.0 - 8.0) 06/29/22 12:20 Ur Specific [place] 1.015 (1.000-1.030) 06/29/22 12:20 Urine Protein 2+ (NEGATIVE) 06/29/22 12:20 Urine Glucose (UA) Negative (NEGATIVE) 06/29/22 12:20 Urine Ketones Negative (NEGATIVE) 06/29/22 12:20 Urine Blood 3+ (NEGATIVE) 06/29/22 12:20 Urine Nitrite Negative (NEGATIVE) 06/29/22 12:20 Urine Bilirubin Negative (NEGATIVE) 06/29/22 12:20 Urine Urobilinogen Normal (NORMAL) 06/29/22 12:20 Ur Leukocyte Esterase 1+ (NEGATIVE) 06/29/22 12:20 Urine RBC 5-10 /HPF (0-3) A 06/29/22 12:20 Urine WBC 3-5 /HPF (0-5) 06/29/22 12:20 Ur Squamous Epith Cells Few /HPF (NEGATIVE) 06/29/22 12:20 Calcium Oxalate Crystal Few /HPF (NEGATIVE) 06/29/22 12:20 Urine Bacteria Trace /HPF (NEGATIVE) 06/29/22 12:20 Urine Mucus Moderate /HPF (NEGATIVE) 06/29/22 12:20 Urine Yeast Moderate /HPF (NEGATIVE) 06/29/22 12:20 Ur Culture Indicated? No/not indicated 06/29/22 12:20 Gastric Fluid pH 3 06/30/22 18:06 Gastric Occult Blood Positive (NEGATIVE) A 06/30/22 18:06 SARS-CoV-2 (PCR) Negative (NEGATIVE) 06/29/22 10:30 Influenza Type A (PCR) Negative (NEGATIVE) 06/29/22 10:30 Influenza Type B (PCR) Negative (NEGATIVE) 06/29/22 10:30 RSV (PCR) Negative (NEGATIVE) 06/29/22 10:30 Resp Viral Panel (PCR) See scanned report 06/29/22 11:03 Plan (1) Aspiration pneumonia: Status: Acute Qualifiers: Aspiration pneumonia type: unspecified Laterality: right Lung location: lower lobe of lung Qualified Code(s): J69.0 - Pneumonitis due to inhalation of food and vomit Plan: SUPPLEMENTAL OXYGEN, TPN AT 125 ML/HR, PERIPERAL TPN, ZOSYN 3.375G IV BID, LEVAQUIN 500MG IV Q48H, LOVENOX 30MG SC DAILY, DUONEBS QID, SOLU-MEDROL 80MG IV Q8H. (2) Septic shock: Status: Acute (3) Hypoxia: Status: Acute (4) Respiratory distress: Status: Acute (5) Hypernatremia: Status: Acute (6) Parkinson disease: Status: Chronic (7) Macular dystrophy: Status: Chronic
--- NOTE | 2022-07-03 13:13 | RAD ---
HISTORYSX: TONSIL, PEG TUBE SOBSTUDYCHEST, 1 VIEWCOMPARISONNovember 2021FINDINGSThe trachea is midline. The cardiac silhouette is stable as is a right-sided Port-A-Cath. The lungs demonstrate stable airspace disease in the right michael. G the bony thorax is unremarkable.IMPRESSIONStable chestElectronically signed by: DOMINIC CHURCH (Jul 03, 2022 13:11:57)
[2022-07-03] MEDS: LIPOSYN III 20% 100ML 100 ML IV SCH (20:59)
[2022-07-03] MEDS: PATIENT'S HOME MEDICATION PO SCH (21:25)
[2022-07-04] MEDS: REGLAN INJ 10 MG VIAL IVP SCH ×3 (01:57→17:34)
[2022-07-04 05:42] LABS: BASOPHILS % (AUTO) 0.1 % (0.2-1.0); HEMATOCRIT 24.4 % (36.0-47.0); HEMOGLOBIN 8.6 g/dL (12.0-16.0); LYMPHOCYTES # (AUTO) 0.5 X10^3/uL (1.3-2.9); LYMPHOCYTES % (AUTO) 6.9 % (21.0-51.0); MEAN CORPUSCULAR HEMOGLOBIN 33.8 pg (27.0-34.0); MEAN CORPUSCULAR HGB CONC 35.4 g/dL (33.0-35.0); MEAN CORPUSCULAR VOLUME 95.6 fL (80.0-100.0); MONOCYTES # (AUTO) 0.7 x10^3/uL (0.3-0.8); MONOCYTES % (AUTO) 9.2 % (0.0-13.0); NEUTROPHILS # (AUTO) 6.5 x10^3/uL (2.2-4.8); NEUTROPHILS % (AUTO) 83.8 % (42.0-75.0); RED BLOOD COUNT 2.55 X10^6/uL (3.5-5.4); RED CELL DISTRIBUTION WIDTH 12.4 % (11.6-16.5); WHITE BLOOD COUNT 7.8 X10^3/uL (3.6-10.0)
[2022-07-04 05:46] LABS: BLOOD UREA NITROGEN 27 mg/dL (7-18); CALCIUM 8.1 mg/dL (8.5-10.1); CARBON DIOXIDE 31.7 mmol/L (21-32); CHLORIDE 106 mmol/L (98-107); COR NA(FOR HYPERGLY) 145 mmol/L (136-145); CREATININE 0.48 mg/dL (0.55-1.02); SODIUM 144 mmol/L (136-145); eGFR NON BLACK RACES > 60 (>60)
[2022-07-04] MEDS: SOLU-Medrol 40 MG VIAL IVP SCH ×3 (05:55→21:07)
[2022-07-04] MEDS: ZOSYN VIAL 3.375 GRAMS 3.375 G in NS 100 ML IV 100 ML IV SCH ×3 (05:56→21:07)
[2022-07-04 06:03] LABS: PLATELET MORPHOLOGY COMMENT NORMAL (NORMAL)
--- NOTE | 2022-07-04 06:07 | RAD ---
HISTORYSOB SX: TONSIL, PEG TUBESTUDYCHEST, 1 VIEWCOMPARISONNovember 2021.FINDINGSThe trachea remains midline. There is a stable right-sided ela catheter CVL. The cardiac silhouette is unchanged. Unchanged right midlung zone right lower lobe airspace disease/pneumonia is again seen. Ground-glass disease in the left midlung zone remains. No pneumothorax is seen. No other cardiopulmonary changes the prior examination are identified. The bony thorax is grossly stable on this exam as well.IMPRESSIONStable chest without acute cardiopulmonary changes, as above. Unchanged airspace opacities.Electronically signed by: KAIDEN AVILEZ III (Jul 04, 2022 06:05:31)
[2022-07-04] MEDS: DUONEB 0.5 MG/3 MG (3 mL) NEB SCH ×4 (08:30→21:00)
[2022-07-04] MEDS: LOVENOX INJ 40 MG SYR SC SCH (09:06)
[2022-07-04] MEDS: LEVAQUIN PREMIX IV 500 MG 500 MG/100 ML BAG IV SCH (09:06)
[2022-07-04] MEDS: PROTONIX INJ 40 MG VIAL IVP SCH (09:06)
[2022-07-04] MEDS: PEPCID 20 MG VIAL 20 MG in NS 50 ML IV 50 ML IV SCH ×2 (09:06→20:10)
[2022-07-04] MEDS: LEVSIN/MAALOX/LIDOC VISC PO SCH ×4 (09:07→20:10)
[2022-07-04] MEDS: MVI IV SCH ×6 (09:22)
[2022-07-04] MEDS: [UNRECOGNIZED DRUG - OTHER] IV SCH ×6 (09:22)
[2022-07-04] MEDS: D5W 1,000 ML IV 1,000 ML IV SCH (09:22)
[2022-07-04] MEDS: CLINIMIX IV SCH ×6 (09:22)
[2022-07-04] MEDS: TRACE ELEMENTS IV SCH ×6 (09:22)
--- NOTE | 2022-07-04 11:53 | PCM.PROG ---
Progress Note Progress Note for Day of Date of Exam: 07/04/22 Subjective Subjective: IS CURRENTLY INPATIENT STATUS FOR TREATMENT OF ASPIRATION PNEUMONIA, SEPTIC SHOCK, DEHYDRATION, HYPOXIA, AND HYPERNATREMIA. SHE HAS A HX OF PARKINSONS, MUSCULAR DYSTROPHY, AND IS BED/WHEELCHAIR RIDDEN. HER PARENTS ARE AT BEDSIDE. TODAY, SHE IS LYING IN BED WITH EYES CLOSED ON MORNING ROUNDS. SHE OPENS EYES TO VERBAL STIMULI, BUT IS UNABLE TO FOLLOW COMMANDS. SHE IS CURRENTLY UTILIZING OXYGEN VIA NASAL CANNULA AT 3 LPM. SATURATIONS HAVE REMAINED ABOVE 90%. SHE WAS FEBRILE THROUGHOUT THE NIGHT WITH TEMPERATURE REACHING 100.7. STAFF REPORTS THAT PATIENT HAS HAD A MODERATE AMOUNT OF RESIDUAL IN PEG TUBE. SHE HAS ONLY BEEN RECEIVING MEDS THROUGH THE PEG TUBE, BUT NO FEEDINGS. CONTENTS WERE ASPIRATED LAST NIGHT. UPON ASPIRATION, COFFEE GROUND CONTENTS WERE NOTED. UPON EXAMINATION TODAY, HEART IS REGULAR IN RATE AND RHYTHM. BILATERAL LUNGS ARE NOTED WITH RHONCHI THROUGHOUT. ABDOMEN IS ROUND, SOFT, AND NON-TENDER WITH NORMAL BOWEL SOUNDS NOTED IN ALL QUADRANTS. G-TUBE IS NOTED. NO UPPER OR LOWER EXTREMITY EDEMA NOTED. HER VITALS THIS MORNING ARE: 97.3-70-18-98%-86/49. LABS WERE OBTAINED. ABNORMAL LAB VALUES INCLUDE THE FOLLOWING: WBC 5.9, RBC 2.45, HGB 8.3, HCT 23.5, PLT COUNT 124, SODIUM 141, POTASSIUM 3.1, CHLORIDE 104, CARBON DIOXIDE 35.5, BUN 35, CREATININE 0.51, GLUCOSE 99, CALCIUM 8.4, PHOSPHORUS 1.1, MAGNESIUM 1.4, TRIGLYCERIDES 30, PREALBUMIN 14.0. BLOOD CULTURES ARE PENDING. A CHEST XRAY WAS OBTAINED THIS MORNING AND REVEALED: Worse left perihilar airspace opacity. Right lung airspace opacity appears similar. This may represent pneumonia. Blunted costophrenic sulci can be seen with small pleural effusions or pleuro-parynchemal scarring. SHE IS CURRENTLY RECEIVING TPN AT 125 ML/HR, ZOSYN 3.375G IV BID, LEVAQUIN 500MG IV Q48H, LOVENOX 30MG SC DAILY, DUONEBS QID, SOLU-MEDROL 80MG IV Q8H. TODAY, WE WILL ADD REGLAN 5MG IV TID, PEPCID 20MG IV BID, PROTONIX 40MG IV DAILY, AND GI COCTAIL 10ML QID. SHE HAD PLACEMENT OF A PORT A CATH THIS MORNING. OTHERWISE, WE WILL CONTINUE WITH CURRENT PLAN OF CARE TODAY. WE PLAN TO FOLLOW-UP WITH AM LABS AND CHEST XRAY AND CONTINUE TO MONITOR. TIME SPENT ON CLINICAL ASSESSMENT, REVIWING LABS AND IMAGING, DECISION MAKING, AND DOCUMENTATION GREATER THAN 45 MINUTES. 03 July 2022 Patient had no acute problems yesterday or last night. Her hemoglobin is up from 8.0-9.0 this morning. Platelet count stable at 115,000. She is afebrile and her vital signs are stable. I will continue current treatment. 04 July 2022 Patient is resting comfortably this morning. She had no acute problems yesterday or last night again. Her hemoglobin today is down to 8.6. White blood cell count is 7800. She currently afebrile her vital signs are stable. Continue current treatment no changes today. I will recheck her labs again tomorrow morning. Past Medical Family Social History Past Med/Fam/Surg Hx: No changes since H&P Allergies: Allergies No Known Drug Allergies Allergy (Verified 09/04/19 10:48) Review of Systems ROS: No change since H&P Vital Signs and I&O's Vital Signs: Temperature 98.9 F Pulse Rate 78 Respiratory Rate 19 Blood Pressure [Right Arm] 98/55 Blood Pressure [Right Calf] 108/59 Blood Pressure [Right Arm] 115/54 Blood Pressure 99/60 O2 Sat by Pulse Oximetry 99 Intake and Output: Intake & Output 07/01/22 07/02/22 07/03/22 07/04/22 11:59 11:59 11:59 11:59 Intake Total 3346 / 3346 3423 / 3423 2499 / 2499 1900 / 1900 Output Total 4865 / 4865 3520 / 3520 1000 / 1000 1725 / 1725 Balance -1519 / -1519 -97 / -97 1499 / 1499 175 / 175 Physical Exam Oriented: Unable to test Eyes: Normal Ear: Normal Nose: Normal Throat: Normal Respiratory: Generalized and Rhonchi Cardiovascular: Normal : Normal Auscultation: Bowel Sounds: Normal Tenderness: Other (DISTENTION, PEG TUBE PRESENT ) Skin: Decreased Turgur Psychiatric: Other (LETHARGIC ) Mood Description: Calm Affect: Flat Speech Pattern: Aphasic Laboratory and Diagnostics Result Diagrams: 07/04/22 05:30 07/04/22 04:45 Labs: 06/29/22 13:26 Blood Blood Culture - Preliminary 06/29/22 13:17 Blood Blood Culture - Preliminary Laboratory WBC 7.8 X10^3/uL (3.6-10.0) 07/04/22 05:30 RBC 2.55 X10^6/uL (3.5-5.4) L 07/04/22 05:30 Hgb 8.6 g/dL (12.0-16.0) L 07/04/22 05:30 Hct 24.4 % (36.0-47.0) L 07/04/22 05:30 MCV 95.6 fL (80.0-100.0) 07/04/22 05:30 MCH 33.8 pg (27.0-34.0) 07/04/22 05:30 MCHC 35.4 g/dL (33.0-35.0) H 07/04/22 05:30 RDW 12.4 % (11.6-16.5) 07/04/22 05:30 Plt Count 117 X10^3/uL (150.0-450.0) L 07/04/22 05:30 Plt Count Comment Decreased (ADEQUATE) A 07/04/22 05:30 MPV 11.0 fL (7.4-11.0) 07/04/22 05:30 Neut % (Auto) 83.8 % (42.0-75.0) H 07/04/22 05:30 Lymph % (Auto) 6.9 % (21.0-51.0) L 07/04/22 05:30 [place] % (Auto) 9.2 % (0.0-13.0) 07/04/22 05:30 Eos % (Auto) 0.0 % (0.9-2.9) L 07/04/22 05:30 Baso % (Auto) 0.1 % (0.2-1.0) L 07/04/22 05:30 Neut # (Auto) 6.5 x10^3/uL (2.2-4.8) H 07/04/22 05:30 Lymph # (Auto) 0.5 X10^3/uL (1.3-2.9) L 07/04/22 05:30 [place] # (Auto) 0.7 x10^3/uL (0.3-0.8) 07/04/22 05:30 Eos # (Auto) 0.0 x10^3/uL (0.0-0.2) 07/04/22 05:30 Baso # (Auto) 0.0 X10^3/uL (0.0-0.1) 07/04/22 05:30 Absolute Nucleated RBC 0.1 /100WBC 07/04/22 05:30 Total Counted 100 07/02/22 04:35 Neutrophils % (Manual) 74 % (39-76) 07/02/22 04:35 Band Neutrophils % 10 % (0-10) 07/02/22 04:35 Lymphocytes % (Manual) 5 % (13-43) L 07/02/22 04:35 Monocytes % (Manual) 10 % (4-9) H 07/02/22 04:35 Eosinophils % (Manual) 1 % (0-6) 06/29/22 10:41 Metamyelocytes % 1 07/02/22 04:35 Myelocytes % 2 07/01/22 04:35 Promyelocytes % 2 06/29/22 17:51 Plt Morphology Comment Normal (NORMAL) 07/04/22 05:30 RBC Morphology Normal (NORMAL) 07/04/22 05:30 Hypochromasia Slight A 07/01/22 04:35 PT 20.4 SECONDS (11.8-14.3) 06/29/22 13:17 INR Target Range - 06/29/22 13:17 INR 1.82 (0.8-1.3) H 06/29/22 13:17 APTT 36.5 SECONDS (22.9-36.5) 06/29/22 13:17 PTT Comment - 06/29/22 13:17 Sample Site Lbrach 06/30/22 07:00 ABG pH 7.450 (7.35-7.45) 06/30/22 07:00 ABG pCO2 42.0 mmHg (35.0-45.0) 06/30/22 07:00 ABG pO2 409.0 mmHg (80.0-100.0) H 06/30/22 07:00 ABG HCO3 29.2 mmol/L (22-26) H 06/30/22 07:00 ABG O2 Saturation 100.0 % (90-100) 06/30/22 07:00 ABG Base Excess 4.7 mmol/L (-2.0-2.0) H 06/30/22 07:00 Mohsen Test N/a 06/30/22 07:00 A-a Gradient 180.0 mmHg 06/30/22 07:00 FiO2 90.0 06/30/22 07:00 Blood Gas Comments Srikanth well ms/sd 06/30/22 07:00 Sodium 144 mmol/L (136-145) 07/04/22 04:45 Corrected Sodium 145 mmol/L (136-145) 07/04/22 04:45 Potassium 3.9 mmol/L (3.5-5.1) 07/04/22 04:45 Chloride 106 mmol/L (98-107) 07/04/22 04:45 Carbon Dioxide 31.7 mmol/L (21-32) 07/04/22 04:45 BUN 27 mg/dL (7-18) H 07/04/22 04:45 Creatinine 0.48 mg/dL (0.55-1.02) L 07/04/22 04:45 Est GFR (MDRD) Af Amer > 60 (>60) 07/04/22 04:45 Est GFR (MDRD) Non-Af > 60 (>60) 07/04/22 04:45 Glucose 121 mg/dL (65-99) H 07/04/22 04:45 POC Glucose (mg/dL) 114 mg/dL (65-99) H 07/04/22 10:29 Lactic Acid 1.9 mmol/L (0.4-2.0) 06/29/22 23:45 Calcium 8.1 mg/dL (8.5-10.1) L 07/04/22 04:45 Corrected Calcium 9.7 mg/dL (8.5-10.1) 07/01/22 04:35 Phosphorus 1.1 mg/dL (2.6-4.7) L 07/02/22 04:35 Magnesium 1.4 mg/dL (2.0-2.9) L 07/04/22 04:45 Total Bilirubin 0.30 mg/dL (0.2-1.0) 07/01/22 04:35 AST 109 Units/L (15-37) H 07/01/22 04:35 ALT 61 Units/L (12-78) 07/01/22 04:35 Alkaline Phosphatase 40 Units/L (46-116) L 07/01/22 04:35 Creatine Kinase 2743 Units/L (26-192) H 06/29/22 23:45 Troponin I High Sens 70.8 ng/L (4.0-60.0) H* 06/30/22 04:27 Total Protein 5.4 g/dL (6.4-8.2) L 07/01/22 04:35 Albumin 2.4 g/dL (3.4-5.0) L 07/01/22 04:35 Globulin 3.0 g/dL (2.5-4.5) 07/01/22 04:35 Albumin/Globulin Ratio 0.8 Ratio (1.1-2.1) L 07/01/22 04:35 Prealbumin 14.0 mg/dL (18-35.7) L 07/02/22 04:35 Triglycerides 30 mg/dL (0-150) 07/02/22 04:35 Amylase 136 Units/L (25-115) H 06/29/22 10:56 Lipase 112 Units/L (73-393) 06/29/22 10:56 Cortisol 156.0 ug/dL 06/29/22 11:00 Specimen Type Catherized urine 06/29/22 12:20 Urine Color Yellow (YELLOW) 06/29/22 12:20 Urine Appearance Hazy (CLEAR) 06/29/22 12:20 Urine pH 7.0 (5.0 - 8.0) 06/29/22 12:20 Ur Specific [place] 1.015 (1.000-1.030) 06/29/22 12:20 Urine Protein 2+ (NEGATIVE) 06/29/22 12:20 Urine Glucose (UA) Negative (NEGATIVE) 06/29/22 12:20 Urine Ketones Negative (NEGATIVE) 06/29/22 12:20 Urine Blood 3+ (NEGATIVE) 06/29/22 12:20 Urine Nitrite Negative (NEGATIVE) 06/29/22 12:20 Urine Bilirubin Negative (NEGATIVE) 06/29/22 12:20 Urine Urobilinogen Normal (NORMAL) 06/29/22 12:20 Ur Leukocyte Esterase 1+ (NEGATIVE) 06/29/22 12:20 Urine RBC 5-10 /HPF (0-3) A 06/29/22 12:20 Urine WBC 3-5 /HPF (0-5) 06/29/22 12:20 Ur Squamous Epith Cells Few /HPF (NEGATIVE) 06/29/22 12:20 Calcium Oxalate Crystal Few /HPF (NEGATIVE) 06/29/22 12:20 Urine Bacteria Trace /HPF (NEGATIVE) 06/29/22 12:20 Urine Mucus Moderate /HPF (NEGATIVE) 06/29/22 12:20 Urine Yeast Moderate /HPF (NEGATIVE) 06/29/22 12:20 Ur Culture Indicated? No/not indicated 06/29/22 12:20 Gastric Fluid pH 3 06/30/22 18:06 Gastric Occult Blood Positive (NEGATIVE) A 06/30/22 18:06 SARS-CoV-2 (PCR) Negative (NEGATIVE) 06/29/22 10:30 Influenza Type A (PCR) Negative (NEGATIVE) 06/29/22 10:30 Influenza Type B (PCR) Negative (NEGATIVE) 06/29/22 10:30 RSV (PCR) Negative (NEGATIVE) 06/29/22 10:30 Resp Viral Panel (PCR) See scanned report 06/29/22 11:03 Plan (1) Aspiration pneumonia: Status: Acute Qualifiers: Aspiration pneumonia type: unspecified Laterality: right Lung location: lower lobe of lung Qualified Code(s): J69.0 - Pneumonitis due to inhalation of food and vomit Plan: SUPPLEMENTAL OXYGEN, TPN AT 125 ML/HR, PERIPERAL TPN, ZOSYN 3.375G IV BID, LEVAQUIN 500MG IV Q48H, LOVENOX 30MG SC DAILY, DUONEBS QID, SOLU-MEDROL 80MG IV Q8H. (2) Septic shock: Status: Acute Narrative Support Text: Blood culture showed gram-positive cocci Plan: Continue IV Zosyn and Levaquin. (3) Hypoxia: Status: Acute (4) Respiratory distress: Status: Acute (5) Hypernatremia: Status: Resolved Narrative Support Text: Sodium level has returned to normal and is 144 today. Plan: Monitor daily sodiums. (6) Parkinson disease: Status: Chronic (7) Macular dystrophy: Status: Chronic
[2022-07-04] MEDS: PATIENT'S HOME MEDICATION PO SCH (20:11)
[2022-07-04] MEDS: LIPOSYN III 20% 100ML 100 ML IV SCH (20:11)
[2022-07-05] MEDS: REGLAN INJ 10 MG VIAL IVP SCH ×3 (02:10→18:12)
[2022-07-05] MEDS: ZOSYN VIAL 3.375 GRAMS 3.375 G in NS 100 ML IV 100 ML IV SCH ×3 (05:01→22:09)
[2022-07-05] MEDS: D5W 1,000 ML IV 1,000 ML IV SCH ×2 (05:02→12:41)
[2022-07-05] MEDS: SOLU-Medrol 40 MG VIAL IVP SCH ×3 (05:02→20:45)
[2022-07-05 05:33] LABS: BLOOD UREA NITROGEN 20 mg/dL (7-18); CALCIUM 8.1 mg/dL (8.5-10.1); CARBON DIOXIDE 32.8 mmol/L (21-32); CHLORIDE 106 mmol/L (98-107); COR NA(FOR HYPERGLY) 143 mmol/L (136-145); CREATININE 0.39 mg/dL (0.55-1.02); MAGNESIUM 1.9 mg/dL (2.0-2.9); PHOSPHORUS 1.9 mg/dL (2.6-4.7); SODIUM 143 mmol/L (136-145); TRIGLYCERIDES 47 mg/dL (0-150); eGFR NON BLACK RACES > 60 (>60)
[2022-07-05 07:44] LABS: BASOPHILS % (AUTO) 0.1 % (0.2-1.0); HEMATOCRIT 29.5 % (36.0-47.0); HEMOGLOBIN 10.5 g/dL (12.0-16.0); LYMPHOCYTES # (AUTO) 0.3 X10^3/uL (1.3-2.9); LYMPHOCYTES % (AUTO) 1.7 % (21.0-51.0); MEAN CORPUSCULAR HEMOGLOBIN 33.8 pg (27.0-34.0); MEAN CORPUSCULAR HGB CONC 35.5 g/dL (33.0-35.0); MEAN CORPUSCULAR VOLUME 95.1 fL (80.0-100.0); MEAN PLATELET VOLUME 10.2 fL (7.4-11.0); MONOCYTES % (AUTO) 5.6 % (0.0-13.0); NEUTROPHILS # (AUTO) 16.7 x10^3/uL (2.2-4.8); NEUTROPHILS % (AUTO) 92.6 % (42.0-75.0); RED CELL DISTRIBUTION WIDTH 12.8 % (11.6-16.5)
[2022-07-05 08:02] LABS: BAND NEUTROPHILS % 17 % (0-10); METAMYELOCYTES % 3; MYELOCYTES % 1
[2022-07-05 08:03] LABS: PLATELET MORPHOLOGY COMMENT NORMAL (NORMAL)
--- NOTE | 2022-07-05 08:44 | RAD ---
HISTORYPNEUMONIA FOLLOW UPSTUDYCHEST, 1 [id number]/13/2022.TECHNIQUEAP view of the chestFINDINGSRight chest wall port with tip in good position. Patient is rotated. Cardiac and mediastinal contours are within normal limits. Worsened left and improved right airspace opacities. Suspect small left pleural effusion. No pneumothorax.IMPRESSIONWorsened left and improved right airspace opacities, mixed treatment response.Electronically signed by: Jimy Perdomo (Jul 05, 2022 08:43:18)
[2022-07-05] MEDS: DUONEB 0.5 MG/3 MG (3 mL) NEB SCH ×4 (08:45→20:30)
[2022-07-05] MEDS: PEPCID 20 MG VIAL 20 MG in NS 50 ML IV 50 ML IV SCH ×2 (09:06→20:40)
[2022-07-05] MEDS: LOVENOX INJ 40 MG SYR SC SCH (09:06)
[2022-07-05] MEDS: LEVAQUIN PREMIX IV 500 MG 500 MG/100 ML BAG IV SCH (09:06)
[2022-07-05] MEDS: PROTONIX INJ 40 MG VIAL IVP SCH (09:07)
[2022-07-05] MEDS: LEVSIN/MAALOX/LIDOC VISC PO SCH ×4 (09:07→20:39)
[2022-07-05 12:42] LABS: ABG BASE EXCESS 14.4 mmol/L (-2.0-2.0)
[2022-07-05 12:43] LABS: ABG ALLEN TEST POS
[2022-07-05] MEDS: TRACE ELEMENTS IV SCH ×12 (13:21→13:51)
[2022-07-05] MEDS: MVI IV SCH ×12 (13:21→13:51)
[2022-07-05] MEDS: [UNRECOGNIZED DRUG - OTHER] IV SCH ×12 (13:21→13:51)
[2022-07-05] MEDS: CLINIMIX IV SCH ×12 (13:21→13:51)
[2022-07-05] MEDS: TYLENOL ELIXIR 325 MG UDC PO PRN (20:28)
[2022-07-05] MEDS: BUTT CREAM (COMPOUND) TOP PRN (20:40)
[2022-07-05] MEDS: PATIENT'S HOME MEDICATION PO SCH (21:11)
[2022-07-05] MEDS: PATIENT'S HOME MEDICATION PO PRN ×5 (21:11)
[2022-07-05] MEDS: LIPOSYN III 20% 100ML 100 ML IV SCH (22:52)
[2022-07-06] MEDS: REGLAN INJ 10 MG VIAL IVP SCH ×3 (01:53→18:08)
[2022-07-06] MEDS: TYLENOL ELIXIR 325 MG UDC PO PRN (01:54)
[2022-07-06] MEDS ORDERED: ADVIL SUSP 100 MG/5 ML ONE (04:11)
[2022-07-06] MEDS: ADVIL SUSP 100 MG/5 ML PO PRN (04:22)
[2022-07-06] MEDS: ZOSYN VIAL 3.375 GRAMS 3.375 G in NS 100 ML IV 100 ML IV SCH ×3 (05:03→21:00)
[2022-07-06 05:33] LABS: RED BLOOD COUNT 2.95 X10^6/uL (3.5-5.4); WHITE BLOOD COUNT 18.8 X10^3/uL (3.6-10.0)
[2022-07-06 05:34] LABS: BLOOD UREA NITROGEN 20 mg/dL (7-18); CARBON DIOXIDE 32.7 mmol/L (21-32); CHLORIDE 102 mmol/L (98-107); COR NA(FOR HYPERGLY) 142 mmol/L (136-145); CREATININE 0.48 mg/dL (0.55-1.02); SODIUM 141 mmol/L (136-145); eGFR NON BLACK RACES > 60 (>60)
[2022-07-06 05:42] LABS: BASOPHILS % (AUTO) 0.1 % (0.2-1.0); HEMATOCRIT 27.9 % (36.0-47.0); HEMOGLOBIN 10.2 g/dL (12.0-16.0); LYMPHOCYTES # (AUTO) 0.3 X10^3/uL (1.3-2.9); LYMPHOCYTES % (AUTO) 1.7 % (21.0-51.0); MEAN CORPUSCULAR HEMOGLOBIN 34.4 pg (27.0-34.0); MEAN CORPUSCULAR HGB CONC 36.5 g/dL (33.0-35.0); MEAN CORPUSCULAR VOLUME 94.4 fL (80.0-100.0); MEAN PLATELET VOLUME 9.3 fL (7.4-11.0); MONOCYTES # (AUTO) 0.9 x10^3/uL (0.3-0.8); NEUTROPHILS # (AUTO) 17.5 x10^3/uL (2.2-4.8); NEUTROPHILS % (AUTO) 93.2 % (42.0-75.0); RED CELL DISTRIBUTION WIDTH 12.8 % (11.6-16.5)
[2022-07-06 06:00] LABS: BAND NEUTROPHILS % 3 % (0-10)
[2022-07-06 06:01] LABS: PLATELET MORPHOLOGY COMMENT NORMAL (NORMAL); STOMATOCYTES SLIGHT
--- NOTE | 2022-07-06 08:25 | RAD ---
HISTORYPNEUMONIASTUDYCHEST, 1 [id number]/14/2022.TECHNIQUEAP view of the chestFINDINGSRight chest wall port with tip in stable position. Patient is rotated. Cardiac and mediastinal contours are within normal limits. Similar appearing of bilateral airspace opacities compared to prior. Suspect small left pleural effusion. No pneumothorax.IMPRESSIONNo significant change compared to prior radiograph.Electronically signed by: Jimy Perdomo (Jul 06, 2022 08:23:59)
[2022-07-06 08:30] LABS: ABG BASE EXCESS 16.7 mmol/L (-2.0-2.0)
[2022-07-06 08:31] LABS: ABG HCO3 42.7 mmol/L (22-26)
[2022-07-06 08:32] LABS: ABG ALLEN TEST POS
[2022-07-06] MEDS: DUONEB 0.5 MG/3 MG (3 mL) NEB SCH ×4 (08:40→20:10)
[2022-07-06] MEDS: LEVAQUIN PREMIX IV 500 MG 500 MG/100 ML BAG IV SCH (09:39)
[2022-07-06] MEDS: LEVSIN/MAALOX/LIDOC VISC PO SCH ×4 (09:39→20:58)
[2022-07-06] MEDS: PEPCID 20 MG VIAL 20 MG in NS 50 ML IV 50 ML IV SCH ×2 (09:39→20:59)
[2022-07-06] MEDS: SOLU-Medrol 40 MG VIAL IVP SCH ×2 (09:40→20:59)
[2022-07-06] MEDS: LOVENOX INJ 40 MG SYR SC SCH (09:40)
[2022-07-06] MEDS: PROTONIX INJ 40 MG VIAL IVP SCH (09:40)
[2022-07-06] MEDS: D5W 1,000 ML IV 1,000 ML IV SCH (10:51)
[2022-07-06] MEDS: TRACE ELEMENTS IV SCH ×6 (13:55)
[2022-07-06] MEDS: [UNRECOGNIZED DRUG - OTHER] IV SCH ×6 (13:55)
[2022-07-06] MEDS: MVI IV SCH ×6 (13:55)
[2022-07-06] MEDS: CLINIMIX IV SCH ×6 (13:55)
[2022-07-06] MEDS: PATIENT'S HOME MEDICATION PO SCH (20:59)
[2022-07-06] MEDS: PATIENT'S HOME MEDICATION PO PRN ×5 (21:00→21:01)
[2022-07-06] MEDS: BUTT CREAM (COMPOUND) TOP PRN (21:00)
[2022-07-06] MEDS: LIPOSYN III 20% 100ML 100 ML IV SCH (22:48)
[2022-07-07] MEDS: REGLAN INJ 10 MG VIAL IVP SCH ×3 (02:02→17:25)
[2022-07-07] MEDS: D5W 1,000 ML IV 1,000 ML IV SCH ×2 (02:38→08:45)
[2022-07-07] MEDS: ZOSYN VIAL 3.375 GRAMS 3.375 G in NS 100 ML IV 100 ML IV SCH ×3 (05:02→21:31)
[2022-07-07 05:09] LABS: BLOOD UREA NITROGEN 18 mg/dL (7-18); CALCIUM 7.7 mg/dL (8.5-10.1); CARBON DIOXIDE 31.7 mmol/L (21-32); CHLORIDE 102 mmol/L (98-107); COR NA(FOR HYPERGLY) 139 mmol/L (136-145); CREATININE 0.35 mg/dL (0.55-1.02); SODIUM 138 mmol/L (136-145); eGFR NON BLACK RACES > 60 (>60)
[2022-07-07 05:14] LABS: BASOPHILS % (AUTO) 0.2 % (0.2-1.0); HEMATOCRIT 21.8 % (36.0-47.0); LYMPHOCYTES # (AUTO) 0.3 X10^3/uL (1.3-2.9); LYMPHOCYTES % (AUTO) 2.2 % (21.0-51.0); MEAN CORPUSCULAR HEMOGLOBIN 34.3 pg (27.0-34.0); MEAN CORPUSCULAR HGB CONC 36.4 g/dL (33.0-35.0); MEAN CORPUSCULAR VOLUME 94.1 fL (80.0-100.0); MEAN PLATELET VOLUME 9.5 fL (7.4-11.0); MONOCYTES # (AUTO) 0.8 x10^3/uL (0.3-0.8); MONOCYTES % (AUTO) 5.2 % (0.0-13.0); NEUTROPHILS # (AUTO) 13.6 x10^3/uL (2.2-4.8); NEUTROPHILS % (AUTO) 92.4 % (42.0-75.0); RED BLOOD COUNT 2.32 X10^6/uL (3.5-5.4); RED CELL DISTRIBUTION WIDTH 12.9 % (11.6-16.5); WHITE BLOOD COUNT 14.7 X10^3/uL (3.6-10.0)
[2022-07-07 05:41] LABS: BAND NEUTROPHILS % 5 % (0-10); PLATELET MORPHOLOGY COMMENT NORMAL (NORMAL); SCHISTOCYTES SLIGHT; STOMATOCYTES SLIGHT
[2022-07-07] MEDS: DUONEB 0.5 MG/3 MG (3 mL) NEB SCH ×4 (08:42→20:40)
[2022-07-07] MEDS: MVI IV SCH ×12 (08:45→14:35)
[2022-07-07] MEDS: TRACE ELEMENTS IV SCH ×12 (08:45→14:35)
[2022-07-07] MEDS: CLINIMIX IV SCH ×12 (08:45→14:35)
[2022-07-07] MEDS: [UNRECOGNIZED DRUG - OTHER] IV SCH ×12 (08:45→14:35)
[2022-07-07] MEDS: PROTONIX INJ 40 MG VIAL IVP SCH (09:04)
[2022-07-07] MEDS: PEPCID 20 MG VIAL 20 MG in NS 50 ML IV 50 ML IV SCH ×2 (09:06→21:07)
--- NOTE | 2022-07-07 09:06 | RAD ---
HISTORYPNEUMONIA, FEVERSTUDYCHEST, 1 [id number]/15/2022.TECHNIQUEAP view of the chestFINDINGSPatient is rotated. Right chest wall port with tip in similar position. Multiple external wires limit evaluation. Cardiac and mediastinal contours are within normal limits. Worsened bilateral airspace opacities. Small left pleural effusion. No pneumothorax.IMPRESSIONWorsened bilateral pneumonia. Small left pleural effusion.Electronically signed by: Jimy Perdomo (Jul 07, 2022 09:05:31)
[2022-07-07] MEDS: SOLU-Medrol 40 MG VIAL IVP SCH ×2 (09:09→21:06)
[2022-07-07] MEDS: LEVSIN/MAALOX/LIDOC VISC PO SCH ×4 (09:10→21:06)
[2022-07-07] MEDS: LOVENOX INJ 40 MG SYR SC SCH (09:10)
[2022-07-07 09:14] LABS: FREE T4 (FREE THYROXINE) 0.91 ng/dL (0.76-1.46); TSH (3RD GENERATION) 0.604 uIU/mL (0.358-3.74)
[2022-07-07] MEDS: PATIENT'S HOME MEDICATION PO PRN ×14 (09:29→21:32)
[2022-07-07] MEDS: LEVAQUIN PREMIX IV 500 MG 500 MG/100 ML BAG IV SCH (09:51)
[2022-07-07 10:38] LABS: ABG BASE EXCESS 13.5 mmol/L (-2.0-2.0)
[2022-07-07 10:40] LABS: ABG ALLEN TEST POS; ABG HCO3 36.6 mmol/L (22-26)
[2022-07-07 13:34] LABS: BILIRUBIN,URINE NEGATIVE (NEGATIVE); BLOOD/HEMOGLOBIN,URINE 1+ (NEGATIVE); GLUCOSE, URINE NEGATIVE (NEGATIVE); KETONES,URINE NEGATIVE (NEGATIVE); LEUKOCYTE ESTERASE ,URINE 1+ (NEGATIVE); NITRITES,URINE NEGATIVE (NEGATIVE); PROTEIN,URINE 1+ (NEGATIVE); UROBILINOGEN,URINE NORMAL (NORMAL)
[2022-07-07 13:35] LABS: APPEARANCE,URINE SLIGHTLY HAZY (CLEAR); COLOR,URINE YELLOW (YELLOW)
[2022-07-07 13:39] LABS: BACTERIA,URINE TRACE /HPF (NEGATIVE); SQUAMOUS EPITHELIAL CELL,UR RARE /HPF (NEGATIVE); YEAST,URINE MANY /HPF (NEGATIVE)
[2022-07-07] MEDS ORDERED: DRUG FILTER EXTENSION SET ONE (14:38)
--- NOTE | 2022-07-07 16:43 | RAD ---
EXAM: ABDOMEN X-RAY (or KUB)HISTORY: Distended abdomen. Tonsil. PEG tube.TECHNIQUE: Supine viewCOMPARISON: None.FINDINGS:A gastrostomy tube is noted with the distal tip superimposed on the lateral margin of the body of the stomach; cannot confirm intraluminal positioning of the distal tip with this exam. Clinical correlation is advised. Consider follow-up evaluation with CT and/or x-ray after G-tube contrast administration to confirm intraluminal positioning as clinically warrantedThe bowel gas pattern is nonspecific and nonobstructive. There is no gross organomegaly, free intraperitoneal air, or suspicious calcifications seen. The visualized bony structures are within normal limits. A stimulator device is seen overlying the right abdomen.IMPRESSION:1. A gastrostomy tube is noted with the distal tip superimposed on the lateral margin of the body of the stomach; cannot confirm intraluminal positioning of the distal tip with this exam. Clinical correlation is advised. Consider follow-up evaluation with CT and/or x-ray after G-tube contrast administration to confirm intraluminal positioning as clinically warranted2. No gross organomegaly, free intraperitoneal air, or suspicious calcifications seen.Electronically signed by: Carlo Mejia (Jul 07, 2022 16:42:18)
[2022-07-07] MEDS: LIPOSYN III 20% 100ML 100 ML IV SCH (21:06)
[2022-07-07] MEDS: PATIENT'S HOME MEDICATION PO SCH (21:07)
[2022-07-07] MEDS: ADVIL SUSP 100 MG/5 ML PO PRN (21:20)
[2022-07-08] MEDS: REGLAN INJ 10 MG VIAL IVP SCH ×3 (01:21→18:12)
[2022-07-08] MEDS: ZOSYN VIAL 3.375 GRAMS 3.375 G in NS 100 ML IV 100 ML IV SCH ×3 (05:10→21:34)
[2022-07-08 05:13] LABS: BASOPHILS % (AUTO) 0.3 % (0.2-1.0); EOSINOPHILS % (AUTO) 0.1 % (0.9-2.9); HEMATOCRIT 22.7 % (36.0-47.0); HEMOGLOBIN 8.1 g/dL (12.0-16.0); LYMPHOCYTES # (AUTO) 0.3 X10^3/uL (1.3-2.9); LYMPHOCYTES % (AUTO) 1.9 % (21.0-51.0); MEAN CORPUSCULAR HEMOGLOBIN 33.8 pg (27.0-34.0); MEAN CORPUSCULAR HGB CONC 35.8 g/dL (33.0-35.0); MEAN CORPUSCULAR VOLUME 94.5 fL (80.0-100.0); MEAN PLATELET VOLUME 9.4 fL (7.4-11.0); MONOCYTES # (AUTO) 1.1 x10^3/uL (0.3-0.8); MONOCYTES % (AUTO) 6.3 % (0.0-13.0); NEUTROPHILS # (AUTO) 15.3 x10^3/uL (2.2-4.8); NEUTROPHILS % (AUTO) 91.4 % (42.0-75.0); RED CELL DISTRIBUTION WIDTH 12.7 % (11.6-16.5); WHITE BLOOD COUNT 16.7 X10^3/uL (3.6-10.0)
[2022-07-08 05:17] LABS: PREALBUMIN 16.2 mg/dL (18-35.7)
[2022-07-08 05:20] LABS: ALANINE AMINOTRANSFERASE 36 Units/L (12-78); ALBUMIN 1.9 g/dL (3.4-5.0); ALKALINE PHOSPHATASE 55 Units/L (46-116); ASPARTATE AMINO TRANSFERASE 19 Units/L (15-37); BLOOD UREA NITROGEN 22 mg/dL (7-18); CALCIUM 7.5 mg/dL (8.5-10.1); CARBON DIOXIDE 32.3 mmol/L (21-32); CHLORIDE 106 mmol/L (98-107); COR CA(FOR HYPOALB) 9.2 mg/dL (8.5-10.1); COR NA(FOR HYPERGLY) 141 mmol/L (136-145); CREATININE 0.31 mg/dL (0.55-1.02); SODIUM 140 mmol/L (136-145); TOTAL PROTEIN 5.5 g/dL (6.4-8.2); eGFR NON BLACK RACES > 60 (>60)
[2022-07-08 05:32] LABS: BAND NEUTROPHILS % 5 % (0-10); PLATELET MORPHOLOGY COMMENT NORMAL (NORMAL)
[2022-07-08 05:33] LABS: STOMATOCYTES SLIGHT
[2022-07-08 05:51] LABS: ABG BASE EXCESS 10.2 mmol/L (-2.0-2.0)
[2022-07-08 05:52] LABS: ABG HCO3 35.6 mmol/L (22-26)
--- NOTE | 2022-07-08 07:04 | RAD ---
HISTORYF/U PNEUMONIASTUDYCHEST, 1 [id number]/16/2022.TECHNIQUEAP view of the chestFINDINGSPatient is rotated. Right chest wall port with tip in stable position. Cardiac and mediastinal contours are within normal limits. Unchanged bilateral airspace opacities. Suspect small left pleural effusion. No pneumothorax. External wires are present.IMPRESSIONNo significant change compared to prior radiograph.Electronically signed by: Jimy Perdomo (Jul 08, 2022 07:02:07)
[2022-07-08] MEDS: DUONEB 0.5 MG/3 MG (3 mL) NEB SCH ×4 (08:15→21:00)
[2022-07-08] MEDS: [UNRECOGNIZED DRUG - OTHER] IV SCH ×6 (09:36)
[2022-07-08] MEDS: TRACE ELEMENTS IV SCH ×6 (09:36)
[2022-07-08] MEDS: CLINIMIX IV SCH ×6 (09:36)
[2022-07-08] MEDS: MVI IV SCH ×6 (09:36)
[2022-07-08] MEDS: PROTONIX INJ 40 MG VIAL IVP SCH (10:12)
[2022-07-08] MEDS: SOLU-Medrol 40 MG VIAL IVP SCH ×2 (10:12→21:34)
[2022-07-08] MEDS: LEVAQUIN PREMIX IV 500 MG 500 MG/100 ML BAG IV SCH (10:12)
[2022-07-08] MEDS: PEPCID 20 MG VIAL 20 MG in NS 50 ML IV 50 ML IV SCH ×2 (10:13→20:31)
[2022-07-08] MEDS: LOVENOX INJ 40 MG SYR SC SCH (10:13)
[2022-07-08] MEDS: LEVSIN/MAALOX/LIDOC VISC PO SCH ×4 (10:14→20:30)
[2022-07-08] MEDS: PATIENT'S HOME MEDICATION PO PRN ×5 (10:17→10:21)
[2022-07-08] MEDS: ADVIL SUSP 100 MG/5 ML PO PRN ×2 (11:17→16:13)
[2022-07-08] MEDS ORDERED: DRUG FILTER EXTENSION SET ONE (12:39)
[2022-07-08] MEDS ORDERED: DIFLUCAN 100 MG IV (MIX by PHARMACY)* 100 MG/50 ML BAG IV SCH (14:00)
[2022-07-08] MEDS: TYLENOL ELIXIR 325 MG UDC PO PRN (14:01)
[2022-07-08] MEDS ORDERED: OFIRMEV IV 1000 MG VIAL 500 MG/50 ML VIAL IV PRN (17:44)
--- NOTE | 2022-07-08 17:45 | RAD ---
HISTORYPEG TUBE PLACEMENT, LEAKING AROUND TUBE TONSIL, PEG TUBESTUDYKUBCOMPARISONNoneFIND INGSEvaluation of the abdomen demonstrates a normal bowel gas pattern. There is a G-tube in place in the left upper quadrant of contrast opacifying the stomach. No abnormal extravasation is seen. No pathological soft tissue mass or calcification can be observed. The bony structures are grossly intact.IMPRESSIONNo evidence for acute abdominal pathology identified.Electronically signed by: DOMINIC CHURCH (Jul 08, 2022 17:44:07)
[2022-07-08] MEDS: D5W 1,000 ML IV 1,000 ML IV SCH (19:08)
[2022-07-08] MEDS: PATIENT'S HOME MEDICATION PO SCH (20:31)
[2022-07-08] MEDS: LIPOSYN III 20% 100ML 100 ML IV SCH (20:32)
[2022-07-08] MEDS ORDERED: PROTONIX INJ 40 MG VIAL IVP SCH (21:00)
[2022-07-08] MEDS ORDERED: SOLU-Medrol 40 MG VIAL IVP SCH (22:00)
[2022-07-08] MEDS ORDERED: TORADOL 30 MG VIAL IVP PRN (22:45)
[2022-07-09] MEDS: REGLAN INJ 10 MG VIAL IVP SCH (02:08)
[2022-07-09] MEDS: SOLU-Medrol 40 MG VIAL IVP SCH (05:05)
[2022-07-09] MEDS: ZOSYN VIAL 3.375 GRAMS 3.375 G in NS 100 ML IV 100 ML IV SCH (05:05)
[2022-07-09] MEDS: DUONEB 0.5 MG/3 MG (3 mL) NEB SCH (08:51)
[2022-07-09] MEDS ORDERED: MORPHINE SULFATE PCA 30 MG IV SCH (10:00)
[2022-07-09] MEDS: VERSED IV PREMIX 100 MG/100 ML IV.SOLN IV SCH ×2 (10:25→10:32)
[2022-07-09] MEDS ORDERED: MORPHINE SULFATE PCA 30 MG IVP PRN (10:56)
[2022-07-09] MEDS ORDERED: VERSED IV PREMIX 100 MG/100 ML IV.SOLN IV PRN (10:57)
[2022-07-09 12:08] VITALS: BP 105/61
[2022-07-09] MEDS ORDERED: XANAX ONE (13:44)
== END 2022-07-09 15:10 | disposition expired | DRG 871 ==
LOC: ICU → OBSVTOIN 09:41
PROVIDERS: ADMIT Internal Medicine; ATTEND Internal Medicine
DX: Z74.01 Bed confinement status; Z20.822 Contact with and (suspected) exposure to COVID-19; E87.0 Hyperosmolality and hypernatremia; J69.0 Pneumonitis due to inhalation of food and vomit; B37.49 Other urogenital candidiasis; R63.4 Abnormal weight loss; G20 Parkinson's disease; E86.0 Dehydration; R00.0 Tachycardia, unspecified; R14.0 Abdominal distension (gaseous); I87.2 Venous insufficiency (chronic) (peripheral); R09.02 Hypoxemia; K94.23 Gastrostomy malfunction; G71.09 Other specified muscular dystrophies; Z66 Do not resuscitate; A41.01 Sepsis due to Methicillin susceptible Staphylococcus aureus